=== PATIENT | female | born 1970 | race Caucasian/White ===

== ENCOUNTER 2020-10-13 14:05 | Outpatient (CLI) | payer OTHER ==
[2020-10-13 18:49] LABS: PROLACTIN 7.5 ng/mL
[2020-10-13 19:12] LABS: LUTEINIZING HORMONE 35.55 mIU/mL
[2020-10-14 08:06] LABS: ESTRADIOL <15 pg/mL; PROGESTERONE <0.5 ng/mL
== END 2020-10-13 14:06 | disposition home or self-care (01) ==
LOC: LAB.N 14:05
PROVIDERS: ATTEND Family Medicine
DX: N93.9 Abnormal uterine and vaginal bleeding, unspecified (principal)
CPT/HCPCS: 36415; 82670; 83001; 83002; 84144; 84146; 84702

== ENCOUNTER 2020-12-25 07:00 | Outpatient (CLI) | payer MEDICAID | END 2020-12-25 23:59 | disposition home or self-care (01) | LOC: LAB.N 07:00 | PROVIDERS: ATTEND Family Medicine | DX: R10.31 Right lower quadrant pain (principal) | CPT/HCPCS: 87086 ==

== ENCOUNTER 2020-12-25 13:34 | Inpatient (IN) | payer MEDICAID ==
--- NOTE | 2020-12-25 14:49 | ED Physician Documentation ---
PD HPI ABD PAIN - Stated complaint Stated Complaint: L SIDE PX/SENT BY - Chief complaint Chief Complaint: Abd Pain - History obtained from History obtained from: Patient - History of Present Illness Timing - onset: How many days ago (2-3) Timing - duration: Days (2-3) Timing - details: Abrupt onset, Still present (steadily worsening) Quality: Aching, Sharp, Pain Location: LLQ Radiation: Lower back. No: Left flank Worsened by: No: Eating Associated symptoms: Nausea, Diarrhea, Loss of appetite. No: Fever, Constipation, Dysuria, Vaginal bleeding, Vaginal dc Similar symptoms before: Has not had sx before Recently seen: Clinic (routine annual with pelvic 2-3 weeks ago that was normal.) Review of Systems Constitutional: reports: Chills, Myalgias. denies: Fever Nose: denies: Rhinorrhea / runny nose, Congestion Throat: denies: Sore throat Cardiac: denies: Chest pain / pressure Respiratory: denies: Cough GI: reports: Abdominal Pain, Nausea, Vomiting (today), Diarrhea. 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 - Present Medications Home Medications: Ambulatory Orders Medication Instructions Recorded Confirmed No Known Home Medications 12/25/20 12/25/20 - Allergies Allergies/Adverse Reactions: Allergies Allergy/AdvReac Type Severity Reaction Status Date / Time No Known Drug Allergies Allergy Verified 12/25/20 13:49 PD ED PE NORMAL - Vitals Vital signs reviewed: Yes - General General: Alert and oriented X 3, Well developed/nourished, Other (appears in considerable pain) - HEENT HEENT: Pharynx benign - Neck Neck: Supple, no meningeal sign, No adenopathy - Cardiac Cardiac: RRR, No murmur - Respiratory Respiratory: Clear bilaterally - Abdomen Abdomen: Soft, No organomegaly, Other (markedly tender LLQ and mid abdomen, with percussion and rebound tenderness. Mild distension. ) - Female Female : Deferred - Rectal Rectal: Deferred - Back Back: No CVA TTP - Derm Derm: Normal color, Warm and dry - Extremities Extremities: No edema, No calf tenderness / cord - Neuro Neuro: Alert and oriented X 3, No motor deficit, Normal speech Eye Opening: Spontaneous Motor: Obeys Commands Verbal: Oriented GCS Score: 15 Results - Vitals Vitals: Vital Signs - 24 hr 12/25/20 12/25/20 12/25/20 13:49 17:27 19:10 Temperature 36.6 C Heart Rate 75 66 61 Respiratory 16 20 16 Rate Blood Pressure 119/65 115/75 95/62 O2 Saturation 100 100 100 Oxygen O2 Source Room air - Labs Labs: Laboratory Tests 12/25/20 12/25/20 12/25/20 14:45 14:45 14:45 WBC 11.5 H RBC 4.20 Hgb 13.5 Hct 40.5 MCV 96.4 MCH 32.1 H MCHC 33.3 RDW 12.9 Plt Count 218 MPV 12.1 H Neut # (Auto) 8.5 H Lymph # (Auto) 1.9 [place] # (Auto) 0.9 Eos # (Auto) 0.0 Baso # (Auto) 0.0 Absolute Nucleated RBC 0.00 Nucleated RBC % 0.0 Sodium 139 Potassium 4.5 Chloride 102 Carbon Dioxide 26 Anion Gap 11.0 BUN 13 Creatinine 0.9 Estimated GFR (MDRD) 66 L Glucose 108 H Lactic Acid 0.7 Calcium 9.2 Total Bilirubin 1.2 H AST 11 ALT 15 Alkaline Phosphatase 64 Total Protein 8.3 H Albumin 4.2 Globulin 4.1 Albumin/Globulin Ratio 1.0 Lipase 22 Urine Color Urine Clarity Urine pH Ur Specific [place] Urine Protein Urine Glucose (UA) Urine Ketones Urine Occult Blood Urine Nitrite Urine Bilirubin Urine Urobilinogen Ur Leukocyte Esterase Urine RBC Urine WBC Ur Squamous Epith Cells Urine Bacteria Urine Mucus Ur Microscopic Review Urine Culture Comments Nasal Adenovirus (PCR) Nasal B. parapertussis DNA (PCR) Nasal Coronavir 229E PCR Nasal Coronavir HKU1 PCR Nasal Coronavir NL63 PCR Nasal Coronavir OC43 PCR Nasal Enterovir/Rhinovir PCR Nasal Influenza B PCR Nasal Influenza A PCR Nasal Parainfluen 1 PCR Nasal Parainfluen 2 PCR Nasal Parainfluen 3 PCR Nasal Parainfluen 4 PCR Nasal RSV (PCR) Nasal B.pertussis DNA PCR Nasal C.pneumoniae (PCR) Juan Daniel Human Metapneumo PCR Nasal M.pneumoniae (PCR) Nasal SARS-CoV-2 (PCR) 12/25/20 12/25/20 18:33 19:12 WBC RBC Hgb Hct MCV MCH MCHC RDW Plt Count MPV Neut # (Auto) Lymph # (Auto) [place] # (Auto) Eos # (Auto) Baso # (Auto) Absolute Nucleated RBC Nucleated RBC % Sodium Potassium Chloride Carbon Dioxide Anion Gap BUN Creatinine Estimated GFR (MDRD) Glucose Lactic Acid Calcium Total Bilirubin AST ALT Alkaline Phosphatase Total Protein Albumin Globulin Albumin/Globulin Ratio Lipase Urine Color YELLOW Urine Clarity HAZY Urine pH 5.5 Ur Specific [place] 1.010 Urine Protein 30 H Urine Glucose (UA) NEGATIVE Urine Ketones 15 H Urine Occult Blood NEGATIVE Urine Nitrite NEGATIVE Urine Bilirubin NEGATIVE Urine Urobilinogen 0.2 (NORMAL) Ur Leukocyte Esterase NEGATIVE Urine RBC 0-5 Urine WBC 0-3 Ur Squamous Epith Cells MANY Squamous H Urine Bacteria Few Urine Mucus Few Strands Ur Microscopic Review INDICATED Urine Culture Comments NOT INDICATED Nasal Adenovirus (PCR) NOT DETECTED Nasal B. parapertussis DNA (PCR) NOT DETECTED Nasal Coronavir 229E PCR NOT DETECTED Nasal Coronavir HKU1 PCR NOT DETECTED Nasal Coronavir NL63 PCR NOT DETECTED Nasal Coronavir OC43 PCR NOT DETECTED Nasal Enterovir/Rhinovir PCR NOT DETECTED Nasal Influenza B PCR NOT DETECTED Nasal Influenza A PCR NOT DETECTED Nasal Parainfluen 1 PCR NOT DETECTED Nasal Parainfluen 2 PCR NOT DETECTED Nasal Parainfluen 3 PCR NOT DETECTED Nasal Parainfluen 4 PCR NOT DETECTED Nasal RSV (PCR) NOT DETECTED Nasal B.pertussis DNA PCR NOT DETECTED Nasal C.pneumoniae (PCR) NOT DETECTED Juan Daniel Human Metapneumo PCR NOT DETECTED Nasal M.pneumoniae (PCR) NOT DETECTED Nasal SARS-CoV-2 (PCR) NOT DETECTED - Rads (name of study) abd/pelvic CT Radiology: Prelim report reviewed (Localized fluid collection with inflammation in the left lower quadrant. It is adjacent to the sigmoid colon as well as the adnexa. Consideration for diverticulitis with abscess versus tubo-ovarian. US recommended. ), See rad report Pelvic U/S Radiology: Prelim report reviewed (fluid structure near left tube possibly c/w abscess vs cyst. ), See rad report, Other (prelim from tech shows fibroid. Right ovary okay. Left ovary not well identified. Fluid collection left pelvic, but origin not defined. ) PD MEDICAL DECISION MAKING - ED course Complexity details: reviewed results (Fluid collection consistent with likely abscess adjacent to sigmoid and adnexa so origin not clear. Needs IV abx and pain control. Consult surgery and/or MANAGER AEROSPACE. ), re-evaluated patient, considered differential (Considerable tenderness in the left lower abdomen with peritoneal signs. Consider diverticulitis versus abscess versus perforation. Given her age and lack of vaginal symptoms, less likely PID. Consider also renal stone. Will get CT and labs.), d/w patient, d/w database consultant (At thisTalked with Dr. Parra on-call for surgery size of the fluid collection if it were diverticula would be treatable with IV antibiotics and not need draining or surgical intervention.) Departure - Departure Disposition: [facility] DC/Xfer Clinical Impression: Intra-abdominal abscess Abdominal pain Qualifiers: Abdominal location: left lower quadrant Qualified Code(s): R10.32 - Left lower quadrant pain Condition: Stable Record reviewed to determine appropriate education?: Yes Discharge Date/Time: 12/25/20 21:00
[2020-12-25 14:53] LABS: BASOPHILS % (AUTO) 0.3 %; EOSINOPHILS % (AUTO) 0.3 %; HCT - HEMATOCRIT 40.5 % (37.0-47.0); HGB - HEMOGLOBIN 13.5 g/dL (12.0-16.0); LYMPHOCYTES # (AUTO) 1.9 10^3/uL (1.5-3.5); LYMPHOCYTES % (AUTO) 16.7 %; MEAN CORPUSCULAR HEMOGLOBIN 32.1 pg (27.0-31.0); MEAN CORPUSCULAR HGB CONC 33.3 g/dL (32.0-36.0); MEAN CORPUSCULAR VOLUME 96.4 fL (81.0-99.0); MEAN PLATELET VOLUME 12.1 fL (7.9-10.8); MONOCYTES # (AUTO) 0.9 10^3/uL (0.0-1.0); MONOCYTES % (AUTO) 8.2 %; NEUTROPHILS # (AUTO) 8.5 10^3/uL (1.5-6.6); NEUTROPHILS % (AUTO) 74.1 %; PLT - PLATELET COUNT 218 10^3/uL (130-450); RED CELL DISTRIBUTION WIDTH 12.9 % (12.0-15.0); WHITE BLOOD COUNT 11.5 x10^3/uL (4.8-10.8)
[2020-12-25 15:06] LABS: ALBUMIN 4.2 g/dL (3.2-5.5); BILIRUBIN,TOTAL 1.2 mg/dL (0.2-1.0); CALCIUM 9.2 mg/dL (8.5-10.3); CREATININE 0.9 mg/dL (0.4-1.0); POTASSIUM 4.5 mmol/L (3.5-5.0); TOTAL PROTEIN 8.3 g/dL (6.7-8.2)
[2020-12-25] MEDS ORDERED: IOVERSOL 320 100 ML VIAL IVP ONE ×2 (15:15→16:10)
[2020-12-25] MEDS ORDERED: KETOROLAC 30 MG/ML VIAL IVP STA (15:16)
[2020-12-25] MEDS ORDERED: SODIUM CHLORIDE 0.9% 1,000 ML IV STA (15:16)
[2020-12-25] MEDS ORDERED: HYDROmorphone 1 MG/ML CARPUJECT IVP STA ×5 (15:16→20:19)
--- NOTE | 2020-12-25 16:20 | CT Report ---
PROCEDURE: Abdomen/Pelvis W INDICATIONS: LLQ Abdominal pain, diverticulitis suspected CONTRAST: IV CONTRAST: Optiray 320 ml: 100 PO CONTRAST: *NO PO CONTRAST TECHNIQUE: After the administration of IV contrast, 5 mm thick sections acquired from the diaphragms to the symp hysis. 5 mm thick coronal and sagittal reformats were acquired. For radiation dose reduction, the f ollowing was used: automated exposure control, adjustment of mA and/or kV according to patient size. COMPARISON: None. FINDINGS: Image quality: Excellent. ABDOMEN: Lung bases: Lung bases are clear. Heart size is normal. Solid organs: Liver is mildly prominent with steatosis. In size and enhancement. Gallbladder is unr emarkable Biliary system is non dilated. Pancreas enhances normally. No adrenal nodules. Kidneys demonstrate normal size and enhancement, without hydronephrosis. There is a low-density lesion with Hounsfield units measuring -60 in the left inferior pole measuring 1.2 cm. No priors are available fo r comparison. Peritoneum and bowel: Bowel loops are nonobstructive. There is a focus of heterogeneous attenuation and enhancement as well as mesenteric stranding in direct approximation to the anterior aspect of the proximal sigmoid colon on series 72 image 107. It is also immediately adjacent to the left adnexa. N odes and vessels: No retroperitoneal or mesenteric adenopathy by size criteria. Aorta and inferior vena cava are normal in size. Miscellaneous: No ventral hernias. PELVIS: Genitourinary: Bladder wall thickness is normal. There is a hyperdense mass within the uterus measu ring 5.6 cm x 2 cm x 6.0 cm. Miscellaneous: No inguinal hernias or adenopathy. Bones: No suspicious bony lesions. No vertebral body compression fractures. IMPRESSION: 1. Heterogeneous focus of attenuation and enhancement within the left lower quadrant. This region is in direct approximation to the adjacent sigmoid colon, which also demonstrates mild appearance of thi ckening as well as the left adnexa. Appearance may be related to abscess or necrotic malignancy. Singer danae, given location in direct approximation to the adnexa, tubo-ovarian abscess should be considered. Pelvic ultrasound is recommended for further evaluation. 2. Hyperdense focus within the uterus suggestive of fibroid. Attention to this region on pelvic ultra sound is recommended. Reviewed by: Maribel Martinez MD on 12/25/2020 4:18 PM PDT Approved by: Maribel Martinez MD on 12/25/2020 4:18 PM PDT Station ID: [id number]
[2020-12-25] MEDS ORDERED: cefTRIAXone 1 GM VIAL IVP STA (16:28)
[2020-12-25] MEDS ORDERED: metroNIDAZOLE 500 MG/100 ML 500 MG/100 ML BAG IV STA (16:30)
[2020-12-25 18:47] LABS: BILIRUBIN,URINE NEGATIVE (NEGATIVE); GLUCOSE, URINE (UA) NEGATIVE (NEGATIVE); KETONES,URINE (UA) 15 mg/dL (NEGATIVE); LEUKOCYTE ESTERASE, URINE NEGATIVE (NEGATIVE); NITRITE,URINE NEGATIVE (NEGATIVE); OCCULT BLOOD,URINE NEGATIVE (NEGATIVE); PH,URINE 5.5 PH (5.0-7.5); PROTEIN,URINE 30 mg/dL (NEGATIVE); UROBILINOGEN,URINE 0.2 (NORMAL) E.U./dL (NORMAL)
[2020-12-25 18:51] LABS: CLARITY,URINE HAZY (CLEAR)
[2020-12-25 18:55] LABS: BACTERIA,URINE Few /HPF (None Seen); MUCUS,URINE Few Strands; RBC,URINE 0-5 /HPF (0-5); SQUAMOUS EPITHELIAL CELL,UR MANY Squamous (<= Few); WBC,URINE 0-3 /HPF (0-5)
--- NOTE | 2020-12-25 19:40 | Ultrasound Report ---
PROCEDURE: Pelvic w/Transvag+Doppler Comp INDICATIONS: pelvic pain, R TECHNIQUE: Real-time scanning was performed of the pelvic organs, with image documentation. Additional endovagi nal scanning was necessary due to incomplete visualization of the adnexal and endometrial structures by transabdominal scanning. COMPARISON: None. FINDINGS: No pathologic free abdominal or pelvic fluid. Uterus: Uterus is normal in size at 12.0 x 5.3 x 10.2 cm. The endometrium measures 14 mm in combine d thickness. Left posterior subserosal fibroid measuring 67 mm. Ovaries: Right ovary is not well seen. There is intact flow seen within the expected region of the r ight ovary. Left ovary is not seen. Lobulated complex tubular structure within the left adnexa measur ing 44 mm x 48 mm x 43 mm. IMPRESSION: 1. Thickened endometrium. Finding may indicate hyperplasia versus carcinoma. 2. Uterine fibroid. 3. Indeterminate structure within the left adnexa, possibly representing an ovarian cyst versus dilat ed fallopian tube/tubo-ovarian abscess. Reviewed by: Lana Chanel MD on 12/25/2020 7:38 PM PDT Approved by: Lana Chanel MD on 12/25/2020 7:38 PM PDT Station ID: [id number]
[2020-12-25] MEDS ORDERED: ONDANSETRON 4 MG/2 ML VIAL IVP STA (19:51)
[2020-12-25] MEDS ORDERED: ONDANSETRON 4 MG/2 ML VIAL IVP PRN (20:31)
[2020-12-25 20:38] LABS: B. PARAPERTUSSIS- RESP PCR PAN NOT DETECTED; B. PERTUSSIS- RESP PCR PANEL NOT DETECTED; C. PNEUMONIAE- RESP PCR PANEL NOT DETECTED; CORONAVIRUS 229E-RESP PCR NOT DETECTED; CORONAVIRUS HKU1-RESP PCR NOT DETECTED; CORONAVIRUS NL63-RESP PCR NOT DETECTED; CORONAVIRUS OC43-RESP PCR NOT DETECTED; HUMAN METAPNEUMOVIRUS NOT DETECTED; INFLUENZA A- RESP PCR PANEL NOT DETECTED; INFLUENZA B - RESP PCR PANEL NOT DETECTED; M. PNEUMONIAE- RESP PCR PANEL NOT DETECTED; PARAINFLUENZA VIRUS 1 NOT DETECTED; PARAINFLUENZA VIRUS 2 NOT DETECTED; PARAINFLUENZA VIRUS 3 NOT DETECTED; PARAINFLUENZA VIRUS 4 NOT DETECTED; RHINOVIRUS/ENTEROVIRUS NOT DETECTED; RSV- RESP PCR PANEL NOT DETECTED; SARS-CoV-2 -RESP PCR PANEL NOT DETECTED
--- NOTE | 2020-12-25 20:38 | HISTORY & PHYSICAL EXAMINATION ---
Chief Complaint - Chief Complaint Chief Complaint: Abdominal pain History of Present Illness - Admitted From Admitted From:: Home - History Obtained From Records Reviewed: Yes History obtained from: Patient, ER Physician, EMR - History of Present Illness HPI Comment/Other: This is a 50-year-old female without any significant past medical history who presents today complaining of abdominal pain for the past 2 days. She states her pain became much more severe today when she woke up and she rated at about 9 out of 10. She had associated nausea but no vomiting. The pain is located left lower quadrant but she does feel it throughout her abdomen. She denies any fevers but does report chills. She reports no diarrhea or blood in her stool. She denies any dysuria, urgency, hematuria. She does report occasional vaginal spotting as she is going through menopause. She denies any vaginal discharge. She has never had a colonoscopy. She reports having a Pap smear a few weeks ago which was normal to her knowledge. In the emergency department, she was found to be afebrile and normotensive. Labs were significant for a white count of 11,500. CT of the abdomen and pelvis revealed an area of enhancement in the left lower quadrant adjacent to sigmoid colon which may potentially be diverticulitis or an abscess or necrotic malignancy. Differential also included tubo-ovarian abscess. Pelvic ultrasound reveals a thickened endometrium as well as an indeterminate structure the left adnexa which could be an ovarian cyst versus tubo-ovarian abscess. Given the above findings, medicine was consulted for admission. 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 Living arrangement: At home Living Situation: With friend(s) Social History Notes: She lives at home with her roommate. She has remote smoking history. Reports occasional alcohol use. She currently does not work. - POLST Patient has POLST: No Meds/Allgy - Home Medications Home Medications: Ambulatory Orders Medication Instructions Recorded Confirmed No Known Home Medications 12/25/20 12/25/20 - Allergies Allergies/Adverse Reactions: Allergies Allergy/AdvReac Type Severity Reaction Status Date / Time No Known Drug Allergies Allergy Verified 12/25/20 13:49 Review of Systems - Constitutional Constitutional: reports: Chills, Poor appetite. denies: Fever - Ears, Nose & Throat Ears, Nose & Throat: denies: Nasal discharge, Nasal congestion, Sore throat - Cardiovascular Cariovascular: denies: Chest pain, Lightheadedness, Exertional dyspnea, Decr. exercise tolerance - Respiratory Respiratory: denies: Cough, SOB at rest, SOB with exertion - Gastrointestinal Gastrointestinal: reports: Abdominal pain, Nausea. denies: Diarrhea, Black stools, Bloody stools, Vomiting - Genitourinary Genitourinary: denies: Dysuria, Frequency, Urgency, Hematuria - Integumentary Integumentary: denies: Rash - Neurological Neurological: denies: General weakness, Focal weakness, Dizziness, Numbness - All Other Systems All Other Systems: reports: Reviewed and negative Prior Level of Functionality: She is independent with her ADL's. Exam - Vital Signs Reviewed Vital Signs: Yes Vital Signs: Vital Signs x48h Temp Pulse Resp BP Pulse Ox 12/25/20 19:10 61 16 95/62 100 12/25/20 17:27 66 20 115/75 100 12/25/20 13:49 36.6 C 75 16 119/65 100 - Physical Exam General Appearance: positive: No acute distress, Alert Eyes Bilateral: positive: Normal inspection. negative: Conjunctivae nml ENT: positive: ENT inspection nml Neck: positive: Nml inspection Respiratory: positive: No respiratory distress. negative: Wheezes, Rales Cardiovascular: positive: Regular rate & rhythm, No murmur. negative: Tachycardia Abdomen: positive: No distention, Tenderness (Left lower quadrant.), Rebound. negative: Non-tender, Guarding, Abnml bowel sounds Skin: positive: Warm, Dry Extremities: positive: Full ROM, No pedal edema Neurologic/Psychiatric: positive: Motor nml. negative: Disoriented to person, Disoriented to place, Disoriented to time Conclusion/Plan - Problem List (1) Abdominal pain Conclusion/Plan: This may potentially be secondary to diverticulitis or a tubo-ovarian abscess. It is difficult to differentiate based off of imaging. She does not appear septic at this time. We will admit her for IV antibiotics and start her on IV Unasyn and doxycycline which would provide coverage for diverticulitis and a tubo-ovarian abscess. Pain control with Dilaudid and Toradol as needed. Full liquid diet as tolerated. General surgery and gynecology have been consulted and appreciate their input. Qualifiers: Abdominal location: left lower quadrant Qualified Code(s): R10.32 - Left lower quadrant pain (2) Abdominal abscess Conclusion/Plan: There is concern for an abdominal abscess and it is not clear if this is due to diverticulitis or potential tubo-ovarian abscess. We will admit her and start her on Unasyn and doxycycline IV as mentioned above. Appreciate general surgery and gynecology input. Follow-up blood cultures. - Lab Results Lab results reviewed: Yes Fish Bones: 12/25/20 14:45 12/25/20 14:45 - Diagnostic Imaging Results Diagnostic Imaging Results: positive: Final report reviewed Core Measures - Anticipated LOS I expect patient to be DC'd or transferred within 96 hours.: Yes - Issues Hospital Issues and Management Plan: 50-year-old female presents with abdominal pain found to have left lower quadrant abscess likely due to diverticulitis or tubo-ovarian abscess. We will admit for IV antibiotics with general surgery and gynecology consult. - DVT/VTE - Prophylaxis VTE/DVT Device ordered at admit?: Yes VTE/DVT Prophylaxis med ordered at admit?: Yes
[2020-12-25] MEDS: HYDROmorphone 1 MG/ML CARPUJECT IVP PRN (21:35)
[2020-12-25] MEDS: LACTATED RINGERS 1,000 ML IV SCH (21:39)
[2020-12-25] MEDS: DOXYCYCLINE INJ 100 MG in SODIUM CHLORIDE 0.9% MINIBAG 100 ML IV SCH (21:39)
[2020-12-25] MEDS: KETOROLAC 30 MG/ML VIAL IVP PRN (22:59)
[2020-12-26] MEDS: AMPICILLIN/SULBACTAM 3 GM in SODIUM CHLORIDE 0.9% MINIBAG 100 ML IV SCH ×2 (00:11→05:24)
[2020-12-26] MEDS: SODIUM CHLORIDE FLUSH 0.9% 10 ML SYRINGE IVP PRN ×3 (00:18→13:14)
[2020-12-26] MEDS: SODIUM CHLORIDE FLUSH 0.9% 10 ML SYRINGE IVP SCH ×4 (00:18→23:26)
[2020-12-26] MEDS: HYDROmorphone 1 MG/ML CARPUJECT IVP PRN ×5 (00:31→23:35)
[2020-12-26 05:01] LABS: BASOPHILS % (AUTO) 0.2 %; EOSINOPHILS # (AUTO) 0.1 10^3/uL (0.0-0.7); EOSINOPHILS % (AUTO) 0.7 %; HCT - HEMATOCRIT 35.6 % (37.0-47.0); HGB - HEMOGLOBIN 11.5 g/dL (12.0-16.0); LYMPHOCYTES # (AUTO) 1.5 10^3/uL (1.5-3.5); LYMPHOCYTES % (AUTO) 16.9 %; MEAN CORPUSCULAR HEMOGLOBIN 31.9 pg (27.0-31.0); MEAN CORPUSCULAR HGB CONC 32.3 g/dL (32.0-36.0); MEAN CORPUSCULAR VOLUME 98.6 fL (81.0-99.0); MEAN PLATELET VOLUME 12.4 fL (7.9-10.8); MONOCYTES # (AUTO) 0.9 10^3/uL (0.0-1.0); MONOCYTES % (AUTO) 9.5 %; NEUTROPHILS # (AUTO) 6.5 10^3/uL (1.5-6.6); NEUTROPHILS % (AUTO) 72.4 %; PLT - PLATELET COUNT 182 10^3/uL (130-450); RED BLOOD COUNT 3.61 10^6/uL (4.20-5.40)
[2020-12-26 05:09] LABS: CREATININE 0.6 mg/dL (0.4-1.0); POTASSIUM 3.4 mmol/L (3.5-5.0)
[2020-12-26] MEDS: KETOROLAC 30 MG/ML VIAL IVP PRN ×3 (05:20→22:41)
[2020-12-26] MEDS ORDERED: POTASSIUM CHLORIDE 20 MEQ TABLET PO ONE (07:14)
[2020-12-26] MEDS: DOXYCYCLINE INJ 100 MG in SODIUM CHLORIDE 0.9% MINIBAG 100 ML IV SCH (08:41)
[2020-12-26] MEDS: LACTATED RINGERS 1,000 ML IV SCH (08:43)
[2020-12-26] MEDS: ENOXAPARIN 40 MG/0.4 ML SYRINGE SUBQ SCH (08:45)
[2020-12-26] MEDS: polyethylene glycoL 3350 17 GM PACKET PO SCH (09:18)
--- NOTE | 2020-12-26 10:41 | CONSULTATION NOTE ---
Referring Provider Name of Referring Provider:: Yonathan Pierson Consult Date: 12/26/20 Chief Complaint - Chief Complaint Chief Complaint: Left lower quadrant Abdominal pain. History of Present Illness - Admitted From Admitted From:: ED - History of Present Illness HPI Comment/Other: Patient is 51yo Female admitted from ED last evening. Consulted by Dr. Pierson due to a possible tubo-ovarian abcess as source of pain. 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 Living arrangement: At home Living Situation: With friend(s) Social History Notes: She lives at home with her roommate. She has remote smoking history. Reports occasional alcohol use. She currently does not work. - POLST Patient has POLST: No Meds/Allgy - Home Medications Home Medications: Ambulatory Orders Medication Instructions Recorded Confirmed No Known Home Medications 12/25/20 12/25/20 - Allergies Allergies/Adverse Reactions: Allergies Allergy/AdvReac Type Severity Reaction Status Date / Time No Known Drug Allergies Allergy Verified 12/25/20 13:49 Review of Systems - Constitutional Constitutional: reports: Chills - Gastrointestinal Gastrointestinal: reports: Abdominal pain (Patient has had LLQ pain since yesterday. While in ED it was excrutiating.) - Other Findings Other Findings: Patient was crying out in pain caused from IV infusion when I arrived at her room to perform consult. RN and I looked at IV site and arm and there were not any signs of infiltration. No erythema, no swelling. Patient continued to complain that infusion was so cold that it was causing pain and making her hand numb. There was a K-pad around her entire arm and the forarm was warm to touch, no cold. Exam - Vital Signs Vital Signs: Vital Signs x48h Temp Pulse Resp BP Pulse Ox 12/26/20 09:00 98.6 F 80 18 107/55 L 99 12/26/20 05:00 98.0 F 98 18 94/55 L 98 - Physical Exam General Appearance: positive: Moderate distress (Patient was writhing in pain caused by IV infusion being so cold it was causing her tremendous pain. There was a k-pad around entire forearm and inspection of IV site did not display any signs of infection or infilration.) Eyes Bilateral: positive: Normal inspection Respiratory: positive: Chest non-tender, No respiratory distress Cardiovascular: positive: Regular rate & rhythm, No murmur Peripheral Pulses: positive: 2+ Abdomen: positive: Nml bowel sounds, No distention, Other (Patient was so focused on IV site that she did not seem to notice palpation of her abdomen with Stethescope. No noticeable guarding when palpated with stethescope. Good bowel sounds in all quadrants.) Skin: positive: Color nml, No rash Extremities: positive: Non-tender, No pedal edema, Other (No pedal or pretibial edema and SCD's in place.) Neurologic/Psychiatric: positive: Oriented x3 (Reviewed labs and imaging reports. Discussed findings of pelvic ultrasound with patient. Discussed her thickened endometrium and her subserosal fibroid and need for follow-up with Dr. Oro once this abcess has resolved. Discussed adding Flagyl antibiotic to the regimen.) Conclusion/Plan - Diagnosis Diagnosis: Left lower quadrant Abcess, Diverticulosis versus Tubo-ovarian Abcess - Plan Plan: Add Flagyl 500mg IV to Antibiotic regimen. Dr. Oro to follow-up with lidya rodriguez as outpatient for her thickened endometrium and her subserosal fibroid - Lab Results Lab results reviewed: Yes Fish Bones: 12/26/20 04:15 12/26/20 04:15 - Diagnostic Imaging Results Diagnostic Imaging Results: positive: Final report reviewed (Due to patient's lack of fever and normal white count, cannot definitely conclude if Tubo-Ovarian Abcess. Addition of flagyl will give more full coverage if it is tubo-ovarian abcess. Other MANAGER OF HEALTH issues will be followed by Dr. Oro as an outpatient.)
[2020-12-26 12:21] LABS: MUDS CUTOFF CONCENTRATIONS CUTOFF CONC BELOW:
[2020-12-26 12:32] LABS: AMPHETAMINE SCREEN,URINE NEGATIVE (NEGATIVE); BARBITURATE SCREEN,UR NEGATIVE (NEGATIVE); BENZODIAZEPINES SCREEN, URINE NEGATIVE (NEGATIVE); COCAINE SCREEN URINE NEGATIVE (NEGATIVE); METHADONE SCREEN, URINE NEGATIVE (NEGATIVE); METHAMPHETAMINES SCREEN, URINE NEGATIVE (NEGATIVE); OPIATE SCREEN, URINE POSITIVE (NEGATIVE); OXYCODONE SCREEN, URINE NEGATIVE (NEGATIVE); PROPOXYPHENE SCREEN, URINE NEGATIVE (NEGATIVE); THC CANNABINOID SCREEN, URINE POSITIVE (NEGATIVE); TRICYCLIC ANTIDEPRESSANT,URINE NEGATIVE (NEGATIVE)
[2020-12-26] MEDS: CIPROFLOXACIN 400 MG/200 ML 400 MG/200 ML BAG IV SCH ×2 (13:13→20:40)
--- NOTE | 2020-12-26 14:10 | PHARMACY PROGRESS NOTE ---
- Best Possible Medication History Admit Date and Time: 12/25/202030 Processed by: Nursing Medication History completed: Yes Patient Interview: Completed As the person ultimately responsible for medication therapy, providers are able to order a medication from an existing home medication list in [facility] via the "Reconcile Routine" prior to Confirmation of that medication by learning support resource room teacher. Such practice is discouraged except when the physician, in their clinical judg ment, deems that a medical need exists for a medication without regard to previous use.
[2020-12-26] MEDS: metroNIDAZOLE 500 MG/100 ML 500 MG/100 ML BAG IV SCH ×2 (14:30→21:55)
--- NOTE | 2020-12-26 14:42 | PROVIDER PROGRESS NOTE ---
Assessment/Plan - Problem List (1) Abdominal pain Qualifiers: Abdominal location: left lower quadrant Qualified Code(s): R10.32 - Left lower quadrant pain Assessment/Plan: 12/26 Patient still complain of Left lower quadrant pain when she move. gyne cology already saw pt, recommended Flagyl IV for patient, we also switch to Cipro instead of Unasy, Continue intravenous IV fluids, continue pain control (2) Abdominal abscess Conclusion/Plan: pt's WBC is slight treaded down, now it is the normal arrange. pt has no fever. She does not appear septic at this time. Per gynecology, cannot definitely conclude if Tubo-Ovarian Abcess but Addition of flagyl for more full coverage. Appreciate gynecology's consult. we will continue antibiotics, pain control, IVF, vital and lab monitor. It is difficult to differentiate based on imaging study. This might potentially be secondary to diverticulitis or tubo-ovarian abscess. we will followup with GI surgeon and gynecology's recommendation. - Current Meds Current Meds: Current Medications Generic Name Dose Route Start Last Admin Trade Name Freq PRN Reason Stop Dose Admin Enoxaparin Sodium 40 mg 12/26/20 09:00 12/26/20 08:45 Enoxaparin 40 Mg/0.4 Ml Syringe SUBQ 40 mg DAILY MICKY Administration Hydromorphone HCl 1 mg 12/25/20 20:43 12/26/20 13:13 Hydromorphone 1 Mg/Ml Carpuject IVP 1 mg Q2H PRN Administration Pain 8 to 10 Lactated Ringer's 1,000 mls @ 100 mls/hr 12/25/20 21:00 12/26/20 08:43 Lr IV 12/26/20 16:59 100 mls/hr .Q10H MICKY Administration Metronidazole 500 mg in 100 mls @ 100 mls/hr 12/26/20 14:00 12/26/20 14:30 Flagyl 500 Mg/100 Ml IV 100 mls/hr Q8H MICKY Administration Ciprofloxacin 400 mg in 200 mls @ 200 mls/hr 12/26/20 13:00 12/26/20 14:16 Cipro 400 Mg/200 Ml IV Infused BID MICKY Infusion Ketorolac Tromethamine 30 mg 12/25/20 20:45 12/26/20 05:20 Ketorolac 30 Mg/Ml Vial IVP 12/30/20 20:44 30 mg Q6H PRN Administration PAIN Polyethylene Glycol 17 gm 12/26/20 09:00 12/26/20 09:18 Polyethylene Glycol 3350 17 Gm Packet PO 17 gm DAILY MICKY Administration Sodium Chloride 10 ml 12/25/20 20:31 12/26/20 13:14 Sodium Chloride Flush 0.9% 10 Ml Syringe IVP 10 ml PRN PRN Administration NEEDED PER PROVIDER ORDERS Sodium Chloride 10 ml 12/26/20 01:00 12/26/20 09:49 Sodium Chloride Flush 0.9% 10 Ml Syringe IVP 10 ml 0100,0900,1700 MICKY Administration - Lab Result Fish Bone Diagrams: 12/26/20 04:15 12/26/20 04:15 - Additional Planning My Orders: My Active Orders 12/26/20 09:00 polyethylene glycoL 3350 [Miralax] 17 gm PO DAILY 12/26/20 13:00 Ciprofloxacin 400 mg/200 ml [Cipro 400 mg/200 ml] 400 mg in 200 ml IV BID 12/26/20 14:00 metroNIDAZOLE 500 MG/100 ML [Flagyl 500 mg/100 ml] 500 mg in 100 ml IV Q8H 12/26/20 17:00 Saccharomyces Boulardii [Florastor] 250 mg PO BIDWM Subjective - Subjective Patient Reports: Pain Objective Vital Signs: Vital Signs - 24 hr 12/25/20 12/25/20 12/25/20 17:27 19:10 21:00 Temperature 36.9 C Heart Rate 66 61 63 Heart Rate [ Brachial] Respiratory 20 16 16 Rate Blood Pressure 115/75 95/62 106/64 Blood Pressure [Left Brachial artery] Blood Pressure [Right Brachial artery] O2 Saturation 100 100 98 12/25/20 12/26/20 12/26/20 21:12 00:23 05:00 Temperature 36.4 C L 36.5 C 36.7 C Heart Rate Heart Rate [ 68 72 98 Brachial] Respiratory 20 18 18 Rate Blood Pressure Blood Pressure 115/63 94/55 L [Left Brachial artery] Blood Pressure 116/58 L [Right Brachial artery] O2 Saturation 100 97 98 12/26/20 12/26/20 09:00 13:00 Temperature 37.0 C 36.8 C Heart Rate Heart Rate [ 80 78 Brachial] Respiratory 18 17 Rate Blood Pressure Blood Pressure 107/55 L 92/65 [Left Brachial artery] Blood Pressure [Right Brachial artery] O2 Saturation 99 97 Oxygen O2 Source Room air I&O (Last 24 Hrs): Intake and Output Totals x24h 12/24/20 12/25/20 12/26/20 23:59 23:59 23:59 Intake Total 4381.242 1525 Output Total 250 Balance 2344.664 7253 General: Alert, Oriented x3, Mild distress HEENT: Atraumatic Neck: Supple Lymphatic: no adenopathy Neuro: Alert, Non Focal, Oriented Times 3 Cardiovascular: Regular rate, Normal S1, Normal S2 Respiratory: Chest non-tender, No respiratory distress Abdomen: Normal bowel sounds, Soft Extremities: Normal pulses - Results Results: Laboratory Results WBC 9.0 x10^3/uL (4.8-10.8) 12/26/20 04:15 RBC 3.61 10^6/uL (4.20-5.40) L 12/26/20 04:15 Hgb 11.5 g/dL (12.0-16.0) L 12/26/20 04:15 Hct 35.6 % (37.0-47.0) L 12/26/20 04:15 MCV 98.6 fL (81.0-99.0) 12/26/20 04:15 MCH 31.9 pg (27.0-31.0) H 12/26/20 04:15 MCHC 32.3 g/dL (32.0-36.0) 12/26/20 04:15 RDW 13.0 % (12.0-15.0) 12/26/20 04:15 Plt Count 182 10^3/uL (130-450) 12/26/20 04:15 MPV 12.4 fL (7.9-10.8) H 12/26/20 04:15 Neut # (Auto) 6.5 10^3/uL (1.5-6.6) 12/26/20 04:15 Lymph # (Auto) 1.5 10^3/uL (1.5-3.5) 12/26/20 04:15 [place] # (Auto) 0.9 10^3/uL (0.0-1.0) 12/26/20 04:15 Eos # (Auto) 0.1 10^3/uL (0.0-0.7) 12/26/20 04:15 Baso # (Auto) 0.0 10^3/uL (0.0-0.1) 12/26/20 04:15 Absolute Nucleated RBC 0.00 x10^3/uL 12/26/20 04:15 Nucleated RBC % 0.0 /100WBC 12/26/20 04:15 Sodium 136 mmol/L (135-145) 12/26/20 04:15 Potassium 3.4 mmol/L (3.5-5.0) L 12/26/20 04:15 Chloride 103 mmol/L (101-111) 12/26/20 04:15 Carbon Dioxide 27 mmol/L (21-32) 12/26/20 04:15 Anion Gap 6.0 (6-13) 12/26/20 04:15 BUN 13 mg/dL (6-20) 12/26/20 04:15 Creatinine 0.6 mg/dL (0.4-1.0) 12/26/20 04:15 Estimated GFR (MDRD) 105 (>89) 12/26/20 04:15 Glucose 136 mg/dL (70-100) H 12/26/20 04:15 Lactic Acid 0.7 mmol/L (0.5-2.2) 12/25/20 14:45 Calcium 8.0 mg/dL (8.5-10.3) L 12/26/20 04:15 Total Bilirubin 1.2 mg/dL (0.2-1.0) H 12/25/20 14:45 AST 11 IU/L (10-42) 12/25/20 14:45 ALT 15 IU/L (10-60) 12/25/20 14:45 Alkaline Phosphatase 64 IU/L (42-121) 12/25/20 14:45 Total Protein 8.3 g/dL (6.7-8.2) H 12/25/20 14:45 Albumin 4.2 g/dL (3.2-5.5) 12/25/20 14:45 Globulin 4.1 g/dL (2.1-4.2) 12/25/20 14:45 Albumin/Globulin Ratio 1.0 (1.0-2.2) 12/25/20 14:45 Lipase 22 U/L (22-51) 12/25/20 14:45 Urine Color YELLOW 12/25/20 18:33 Urine Clarity HAZY (CLEAR) 12/25/20 18:33 Urine pH 5.5 PH (5.0-7.5) 12/25/20 18:33 Ur Specific [place] 1.010 (1.002-1.030) 12/25/20 18:33 Urine Protein 30 mg/dL (NEGATIVE) H 12/25/20 18:33 Urine Glucose (UA) NEGATIVE mg/dL (NEGATIVE) 12/25/20 18:33 Urine Ketones 15 mg/dL (NEGATIVE) H 12/25/20 18:33 Urine Occult Blood NEGATIVE (NEGATIVE) 12/25/20 18:33 Urine Nitrite NEGATIVE (NEGATIVE) 12/25/20 18:33 Urine Bilirubin NEGATIVE (NEGATIVE) 12/25/20 18:33 Urine Urobilinogen 0.2 (NORMAL) E.U./dL (NORMAL) 12/25/20 18:33 Ur Leukocyte Esterase NEGATIVE (NEGATIVE) 12/25/20 18:33 Urine RBC 0-5 /HPF (0-5) 12/25/20 18:33 Urine WBC 0-3 /HPF (0-5) 12/25/20 18:33 Ur Squamous Epith Cells MANY Squamous (<= Few) H 12/25/20 18:33 Urine Bacteria Few /HPF (None Seen) 12/25/20 18:33 Urine Mucus Few Strands 12/25/20 18:33 Ur Microscopic Review INDICATED 12/25/20 18:33 Urine Culture Comments NOT INDICATED 12/25/20 18:33 Nasal Adenovirus (PCR) NOT DETECTED 12/25/20 19:12 Nasal B. parapertussis DNA (PCR) NOT DETECTED 12/25/20 19:12 Nasal Coronavir 229E PCR NOT DETECTED 12/25/20 19:12 Nasal Coronavir HKU1 PCR NOT DETECTED 12/25/20 19:12 Nasal Coronavir NL63 PCR NOT DETECTED 12/25/20 19:12 Nasal Coronavir OC43 PCR NOT DETECTED 12/25/20 19:12 Nasal Enterovir/Rhinovir PCR NOT DETECTED 12/25/20 19:12 Nasal Influenza B PCR NOT DETECTED 12/25/20 19:12 Nasal Influenza A PCR NOT DETECTED 12/25/20 19:12 Nasal Parainfluen 1 PCR NOT DETECTED 12/25/20 19:12 Nasal Parainfluen 2 PCR NOT DETECTED 12/25/20 19:12 Nasal Parainfluen 3 PCR NOT DETECTED 12/25/20 19:12 Nasal Parainfluen 4 PCR NOT DETECTED 12/25/20 19:12 Nasal RSV (PCR) NOT DETECTED 12/25/20 19:12 Nasal B.pertussis DNA PCR NOT DETECTED 12/25/20 19:12 Nasal C.pneumoniae (PCR) NOT DETECTED 12/25/20 19:12 Juan Daniel Human Metapneumo PCR NOT DETECTED 12/25/20 19:12 Nasal M.pneumoniae (PCR) NOT DETECTED 12/25/20 19:12 Nasal SARS-CoV-2 (PCR) NOT DETECTED 12/25/20 19:12 Urine Opiates Screen POSITIVE (NEGATIVE) H 12/26/20 12:01 Ur Oxycodone Screen NEGATIVE (NEGATIVE) 12/26/20 12:01 Urine Methadone Screen NEGATIVE (NEGATIVE) 12/26/20 12:01 Ur Propoxyphene Screen NEGATIVE (NEGATIVE) 12/26/20 12:01 Ur Barbiturates Screen NEGATIVE (NEGATIVE) 12/26/20 12:01 Ur Tricyclics Screen NEGATIVE (NEGATIVE) 12/26/20 12:01 Ur Phencyclidine Scrn NEGATIVE (NEGATIVE) 12/26/20 12:01 Ur Amphetamine Screen NEGATIVE (NEGATIVE) 12/26/20 12:01 U Methamphetamines Scrn NEGATIVE (NEGATIVE) 12/26/20 12:01 U Benzodiazepines Scrn NEGATIVE (NEGATIVE) 12/26/20 12:01 Urine Cocaine Screen NEGATIVE (NEGATIVE) 12/26/20 12:01 U Cannabinoids Screen POSITIVE (NEGATIVE) H 12/26/20 12:01 ABX Reporting Has patient been on IV antibiotics over the past 48 hours?: Yes Current Medications - Current Medications Current Medications: Active Medications Acetaminophen (Acetaminophen 325 Mg Tablet) 650 mg PO Q4HR PRN PRN Reason: Pain 1 to 4 Enoxaparin Sodium (Enoxaparin 40 Mg/0.4 Ml Syringe) 40 mg SUBQ DAILY MICKY Last Admin: 12/26/20 08:45 Dose: 40 mg Documented by: Hydromorphone HCl (Hydromorphone 1 Mg/Ml Carpuject) 1 mg IVP Q2H PRN PRN Reason: Pain 8 to 10 Last Admin: 12/26/20 13:13 Dose: 1 mg Documented by: Lactated Ringer's (Lr) 1,000 mls @ 100 mls/hr IV .Q10H [facility] Stop: 12/26/20 16:59 Last Admin: 12/26/20 08:43 Dose: 100 mls/hr Documented by: Metronidazole (Flagyl 500 Mg/100 Ml) 500 mg in 100 mls @ 100 mls/hr IV Q8H [facility] Last Admin: 12/26/20 14:30 Dose: 100 mls/hr Documented by: Ciprofloxacin (Cipro 400 Mg/200 Ml) 400 mg in 200 mls @ 200 mls/hr IV BID [facility] Last Infusion: 12/26/20 14:16 Dose: Infused Documented by: Ketorolac Tromethamine (Ketorolac 30 Mg/Ml Vial) 30 mg IVP Q6H PRN PRN Reason: PAIN Stop: 12/30/20 20:44 Last Admin: 12/26/20 05:20 Dose: 30 mg Documented by: Ondansetron HCl (Ondansetron Odt 4 Mg Tablet) 4 mg TL Q6HR PRN PRN Reason: Nausea / Vomiting Ondansetron HCl (Ondansetron 4 Mg/2 Ml Vial) 4 mg IVP Q6HR PRN PRN Reason: Nausea / Vomiting Polyethylene Glycol (Polyethylene Glycol 3350 17 Gm Packet) 17 gm PO DAILY [facility] Last Admin: 12/26/20 09:18 Dose: 17 gm Documented by: Saccharomyces Boulardii (Saccharomyces Boulardii 250 Mg Capsule) 250 mg PO BIDWM [facility] Sodium Chloride (Sodium Chloride Flush 0.9% 10 Ml Syringe) 10 ml IVP PRN PRN PRN Reason: NEEDED PER PROVIDER ORDERS Last Admin: 12/26/20 13:14 Dose: 10 ml Documented by: Sodium Chloride (Sodium Chloride Flush 0.9% 10 Ml Syringe) 10 ml IVP 0100,0900,1700 [facility] Last Admin: 12/26/20 09:49 Dose: 10 ml Documented by: No Known Home Medications 12/25/20
[2020-12-26] MEDS: SACCHAROMYCES BOULARDII 250 MG CAPSULE PO SCH (16:21)
[2020-12-26] MEDS: ONDANSETRON ODT 4 MG TABLET TL PRN (20:57)
[2020-12-27] MEDS: KETOROLAC 30 MG/ML VIAL IVP PRN ×4 (04:46→22:50)
[2020-12-27 04:52] LABS: BASOPHILS % (AUTO) 0.4 %; EOSINOPHILS # (AUTO) 0.1 10^3/uL (0.0-0.7); EOSINOPHILS % (AUTO) 1.5 %; HCT - HEMATOCRIT 35.3 % (37.0-47.0); HGB - HEMOGLOBIN 11.2 g/dL (12.0-16.0); LYMPHOCYTES # (AUTO) 1.8 10^3/uL (1.5-3.5); LYMPHOCYTES % (AUTO) 22.5 %; MEAN CORPUSCULAR HEMOGLOBIN 31.7 pg (27.0-31.0); MEAN CORPUSCULAR HGB CONC 31.7 g/dL (32.0-36.0); MEAN PLATELET VOLUME 11.9 fL (7.9-10.8); MONOCYTES # (AUTO) 0.7 10^3/uL (0.0-1.0); MONOCYTES % (AUTO) 9.3 %; NEUTROPHILS # (AUTO) 5.2 10^3/uL (1.5-6.6); NEUTROPHILS % (AUTO) 65.9 %; PLT - PLATELET COUNT 191 10^3/uL (130-450); RED BLOOD COUNT 3.53 10^6/uL (4.20-5.40); WHITE BLOOD COUNT 7.9 x10^3/uL (4.8-10.8)
[2020-12-27 05:00] LABS: CALCIUM 8.3 mg/dL (8.5-10.3); CREATININE 0.6 mg/dL (0.4-1.0); POTASSIUM 3.9 mmol/L (3.5-5.0)
[2020-12-27] MEDS: metroNIDAZOLE 500 MG/100 ML 500 MG/100 ML BAG IV SCH ×3 (05:34→21:43)
[2020-12-27] MEDS: HYDROmorphone 1 MG/ML CARPUJECT IVP PRN (05:40)
[2020-12-27] MEDS: ACETAMINOPHEN 325 MG TABLET PO PRN (08:30)
[2020-12-27] MEDS: SACCHAROMYCES BOULARDII 250 MG CAPSULE PO SCH ×2 (08:30→16:59)
[2020-12-27] MEDS: DOCUSATE SODIUM 250 MG CAPSULE PO SCH (08:30)
[2020-12-27] MEDS: SENNA 8.6 MG TABLET PO SCH (08:31)
[2020-12-27] MEDS: CIPROFLOXACIN 400 MG/200 ML 400 MG/200 ML BAG IV SCH ×2 (08:31→20:37)
[2020-12-27] MEDS: SODIUM CHLORIDE FLUSH 0.9% 10 ML SYRINGE IVP SCH ×3 (08:31→23:52)
[2020-12-27] MEDS: ENOXAPARIN 40 MG/0.4 ML SYRINGE SUBQ SCH (08:31)
[2020-12-27] MEDS: polyethylene glycoL 3350 17 GM PACKET PO SCH (08:44)
[2020-12-27] MEDS ORDERED: polyethylene glycoL 3350 17 GM PACKET PO SCH (09:00)
[2020-12-27] MEDS: HYDROcod/ACETAM 10 MG/325 MG TABLET PO PRN ×4 (10:57→20:38)
[2020-12-27] MEDS ORDERED: APIXABAN 2.5 MG TABLET PO SCH (11:00)
--- NOTE | 2020-12-27 14:47 | PROVIDER PROGRESS NOTE ---
Subjective - Prog Note Date Prog Note Date: 12/27/20 Prog Note Time: 14:44 - Subjective Pt reports feeling: No change Current Medications - Current Medications Current Medications: Current Medications Generic Name Dose Route Start Last Admin Trade Name Prince PRN Reason Stop Dose Admin Acetaminophen 650 mg 12/25/20 20:31 12/27/20 08:30 Acetaminophen 325 Mg Tablet PO 650 mg Q4HR PRN Administration Pain 1 to 4 Hydrocodone Bitart/Acetaminophen 1 tab 12/27/20 10:26 12/27/20 14:16 Hydrocod/Acetam 10 Mg/325 Mg Tablet PO 1 tab Q4HR PRN Administration PAIN Docusate Sodium 250 - 500 mg 12/27/20 09:00 12/27/20 08:30 Docusate Sodium 250 Mg Capsule PO 250 mg DAILY MICKY Administration Metronidazole 500 mg in 100 mls @ 100 mls/hr 12/26/20 14:00 12/27/20 13:59 Flagyl 500 Mg/100 Ml IV 100 mls/hr Q8H MICKY Administration Ciprofloxacin 400 mg in 200 mls @ 200 mls/hr 12/26/20 13:00 12/27/20 09:54 Cipro 400 Mg/200 Ml IV Infused BID MICKY Infusion Ketorolac Tromethamine 30 mg 12/25/20 20:45 12/27/20 10:54 Ketorolac 30 Mg/Ml Vial IVP 12/30/20 20:44 30 mg Q6H PRN Administration PAIN Ondansetron HCl 4 mg 12/25/20 20:31 12/26/20 20:57 Ondansetron Odt 4 Mg Tablet TL 4 mg Q6HR PRN Administration Nausea / Vomiting Polyethylene Glycol 17 gm 12/26/20 09:00 12/27/20 08:44 Polyethylene Glycol 3350 17 Gm Packet PO 17 gm DAILY MICKY Administration Saccharomyces Boulardii 250 mg 12/26/20 17:00 12/27/20 08:30 Saccharomyces Boulardii 250 Mg Capsule PO 250 mg BIDWM MICKY Administration Senna 8.6 - 17.2 mg 12/27/20 09:00 12/27/20 08:31 Senna 8.6 Mg Tablet PO 8.6 mg DAILY MICKY Administration Sodium Chloride 10 ml 12/25/20 20:31 12/26/20 13:14 Sodium Chloride Flush 0.9% 10 Ml Syringe IVP 10 ml PRN PRN Administration NEEDED PER PROVIDER ORDERS Sodium Chloride 10 ml 12/26/20 01:00 12/27/20 08:31 Sodium Chloride Flush 0.9% 10 Ml Syringe IVP 10 ml 0100,0900,1700 MICKY Administration Objective - Vital Signs/Intake & Output Reviewed Vital Signs: Yes Vital Signs: Vital Signs x48h Temp Pulse Resp BP Pulse Ox 12/27/20 13:00 36.4 C L 77 19 106/56 L 98 12/27/20 09:00 36.7 C 76 21 110/58 L 99 Intake & Output: Intake & Output 12/24/20 12/25/20 12/26/20 12/27/20 23:59 23:59 23:59 23:59 Intake Total 4224.395 3451 540 Output Total 1200 775 Balance 5461.340 2217 -235 - Objective General Appearance: positive: No acute distress Eyes Bilateral: positive: Normal inspection ENT: positive: ENT inspection nml Neck: positive: Nml inspection Respiratory: positive: Chest non-tender, No respiratory distress Cardiovascular: positive: Regular rate & rhythm, No murmur, No gallop Abdomen: positive: Nml bowel sounds, Tenderness (Abdomen is soft, obese, tender in the left lower quadrant, with scattered diffuse mild tenderness in the remainder of the abdomen). negative: Guarding, Rebound, Abnml bowel sounds Skin: positive: Color nml, No rash, Warm, Dry Extremities: positive: Full ROM, Nml appearance Neurologic/Psychiatric: positive: Oriented x3, CN's nml (2-12), Motor nml, Sensation nml - Lab Results Fish Bones: 12/27/20 04:35 12/27/20 04:35 Other Labs: Lab Results x24hrs 12/27/20 12/27/20 Range/Units 04:35 04:35 WBC 7.9 (4.8-10.8) x10^3/uL RBC 3.53 L (4.20-5.40) 10^6/uL Hgb 11.2 L (12.0-16.0) g/dL Hct 35.3 L (37.0-47.0) % MCV 100.0 H (81.0-99.0) fL MCH 31.7 H (27.0-31.0) pg MCHC 31.7 L (32.0-36.0) g/dL RDW 13.0 (12.0-15.0) % Plt Count 191 (130-450) 10^3/uL MPV 11.9 H (7.9-10.8) fL Neut # (Auto) 5.2 (1.5-6.6) 10^3/uL Lymph # (Auto) 1.8 (1.5-3.5) 10^3/uL [place] # (Auto) 0.7 (0.0-1.0) 10^3/uL Eos # (Auto) 0.1 (0.0-0.7) 10^3/uL Baso # (Auto) 0.0 (0.0-0.1) 10^3/uL Absolute Nucleated RBC 0.00 x10^3/uL Nucleated RBC % 0.0 /100WBC Sodium 138 (135-145) mmol/L Potassium 3.9 (3.5-5.0) mmol/L Chloride 103 (101-111) mmol/L Carbon Dioxide 28 (21-32) mmol/L Anion Gap 7.0 (6-13) BUN 7 (6-20) mg/dL Creatinine 0.6 (0.4-1.0) mg/dL Estimated GFR (MDRD) 105 (>89) Glucose 113 H (70-100) mg/dL Calcium 8.3 L (8.5-10.3) mg/dL - Diagnostic Imaging Diagnostic Imaging Results: positive: Final report reviewed ABX Reporting Has patient been on IV antibiotics over the past 48 hours?: Yes Assessment/Plan - Problem List (1) Abdominal pain Impression: Abdominal pain is primarily left lower quadrant. Imaging is suggestive of possibility of a intrapelvic abscess such as a tubo- ovarian abscess versus diverticulitis. Patient also admits she has not had a significant bowel movement for about 5 days now. Patient's initial white count was only slightly elevated, and has since normalized. As such, there is very little definitive evidence at this time for a clear source and underlying etiology for the abdominal pain. Patient is agreeable to advance diet and if pain can be controlled with oral medications can be discharged home with further follow-up for any questionable findings seen on intravaginal ultrasound. An attempt to transition her to home management, will Stop Dilaudid and add [place] for pain control. Would plan to transition to oral antibiotics if still in-house tomorrow and possibly discharge home as early as later today versus 1-2 more days but if pain is worsened, may need to reinvolve surgery for possible laparoscopic procedure given lack of clear etiology. Qualifiers: Abdominal location: left lower quadrant Qualified Code(s): R10.32 - Left lower quadrant pain
[2020-12-27] MEDS: SODIUM CHLORIDE FLUSH 0.9% 10 ML SYRINGE IVP PRN (20:38)
[2020-12-28] MEDS: HYDROcod/ACETAM 10 MG/325 MG TABLET PO PRN ×4 (01:04→13:52)
[2020-12-28 05:16] LABS: BASOPHILS % (AUTO) 0.3 %; EOSINOPHILS # (AUTO) 0.2 10^3/uL (0.0-0.7); EOSINOPHILS % (AUTO) 2.9 %; HCT - HEMATOCRIT 33.8 % (37.0-47.0); HGB - HEMOGLOBIN 10.8 g/dL (12.0-16.0); LYMPHOCYTES # (AUTO) 1.5 10^3/uL (1.5-3.5); LYMPHOCYTES % (AUTO) 22.5 %; MEAN CORPUSCULAR HEMOGLOBIN 31.6 pg (27.0-31.0); MEAN CORPUSCULAR VOLUME 98.8 fL (81.0-99.0); MEAN PLATELET VOLUME 12.4 fL (7.9-10.8); MONOCYTES # (AUTO) 0.6 10^3/uL (0.0-1.0); MONOCYTES % (AUTO) 9.2 %; NEUTROPHILS # (AUTO) 4.4 10^3/uL (1.5-6.6); NEUTROPHILS % (AUTO) 64.7 %; PLT - PLATELET COUNT 210 10^3/uL (130-450); RED BLOOD COUNT 3.42 10^6/uL (4.20-5.40); RED CELL DISTRIBUTION WIDTH 12.9 % (12.0-15.0); WHITE BLOOD COUNT 6.8 x10^3/uL (4.8-10.8)
[2020-12-28 05:27] LABS: ALBUMIN 3.2 g/dL (3.2-5.5); ALKALINE PHOSPHATASE 48 IU/L (42-121); ALT ALANINE AMINOTRANSFERASE < 10 IU/L (10-60); AST ASPARTATE AMINOTRANSFERASE 10 IU/L (10-42); BILIRUBIN,TOTAL 0.3 mg/dL (0.2-1.0); BUN - BLOOD UREA NITROGEN 8 mg/dL (6-20); CARBON DIOXIDE - CO2 28 mmol/L (21-32); CHLORIDE 103 mmol/L (101-111); CREATININE 0.6 mg/dL (0.4-1.0); GFR - MDRD 105 (>89); GLUCOSE 107 mg/dL (70-100); POTASSIUM 3.9 mmol/L (3.5-5.0); SODIUM 138 mmol/L (135-145); TOTAL PROTEIN 6.3 g/dL (6.7-8.2)
[2020-12-28] MEDS: KETOROLAC 30 MG/ML VIAL IVP PRN ×2 (05:43→12:24)
[2020-12-28] MEDS: SODIUM CHLORIDE FLUSH 0.9% 10 ML SYRINGE IVP PRN (05:55)
[2020-12-28] MEDS: metroNIDAZOLE 500 MG/100 ML 500 MG/100 ML BAG IV SCH (06:30)
[2020-12-28] MEDS: SACCHAROMYCES BOULARDII 250 MG CAPSULE PO SCH (08:15)
[2020-12-28] MEDS: ACETAMINOPHEN 325 MG TABLET PO PRN (08:15)
[2020-12-28] MEDS: CIPROFLOXACIN 400 MG/200 ML 400 MG/200 ML BAG IV SCH (08:15)
[2020-12-28] MEDS: polyethylene glycoL 3350 17 GM PACKET PO SCH (08:20)
[2020-12-28] MEDS: SENNA 8.6 MG TABLET PO SCH (08:20)
[2020-12-28] MEDS: DOCUSATE SODIUM 250 MG CAPSULE PO SCH (08:20)
[2020-12-28] MEDS: SODIUM CHLORIDE FLUSH 0.9% 10 ML SYRINGE IVP SCH (08:20)
[2020-12-28] MEDS ORDERED: ENOXAPARIN 40 MG/0.4 ML SYRINGE SUBQ SCH (09:00)
[2020-12-28] MEDS: ONDANSETRON ODT 4 MG TABLET TL PRN (09:26)
--- NOTE | 2020-12-28 12:23 | XRAY Report ---
PROCEDURE: Abdomen 1 View X-Ray INDICATIONS: abdominal pain, eval for ilues, sbo TECHNIQUE: 1 view of the abdomen were acquired. COMPARISON: CT abdomen and pelvis dated 12/25/2020 FINDINGS: Surgical changes and devices: None. Bowel: No pneumoperitoneum. The bowel gas pattern is normal. Soft tissues: No masses; visualized solid organ contours appear normal in size. No suspicious abdom inal calcifications. Bones: No suspicious bony abnormalities. IMPRESSION: No evidence of acute abdominal process. Reviewed by: Dandre Love MD on 12/28/2020 11:22 AM STACEY Approved by: Dandre Love MD on 12/28/2020 11:22 AM STACEY Station ID: [id number]
[2020-12-28 12:46] VITALS: BP 120/56
--- NOTE | 2020-12-28 13:15 | Discharge Plan ---
Discharge Plan Problem Reviewed?: Yes Disposition: Home, Self Care Condition: Stable Prescriptions: HYDROcod/ACET 5/325 Prepack 4 [NORCO 5/325 Prepack 4] 1 tablet PO Q6HR PRN #20 tablet PRN Reason: Severe Pain Ciprofloxacin HCl [Cipro] 500 mg PO BID #14 tablet metroNIDAZOLE [Flagyl] 500 mg PO BID #14 tablet Ketorolac [Toradol] 10 mg PO Q6H PRN #30 tablet PRN Reason: Pain Diet: Regular Activity Restrictions: No driving or operating h Shower Restrictions: No Driving Restrictions: Yes (Do not drive while taking prescription pain medications) Instruction Topics: Metronidazole injection, Ketorolac injection, Ciprofloxacin injection, Acetaminophen Hydrocodone tablets or capsules Health Concerns: You presented with abdominal pain which was evaluated with blood work and a CAT scan of the abdomen. This shows what is most likely an abscess in the pelvis, likely what is called a tubo-ovarian abscess. This can usually be treated effectively with antibiotics. If this does not work, it is possible you may require surgery. Also, on the CAT scan are some other findings that should be followed up on with orthopedic tech. Dr. Oro is recommending following up at the gynecology clinic after discharge. Please try to schedule an appointment. Please complete 7 more days of antibiotics for total of 10 days. As a side effect of these antibiotics, you may experience loose stools or diarrhea. If this persists for more than 3 days, you may try [id number] Imodium AD. In addition, it would be a good idea to try taking some [id number] probiotics such as activity a yogurt or other probiotics you can find at the local pharmacy. No Smoking: If you smoke, Please STOP! Call for help.
--- NOTE | 2020-12-28 18:20 | DISCHARGE SUMMARY ---
"Discharge Summary Admit Date: 12/28/20 Discharge Date: 12/28/20 Discharging Provider: Romeo Mayes MD Condition at Discharge: Stable Discharge Disposition: 01 Home, Self Care - DIAGNOSES Admission Diagnoses: Abdominal Pain Abdominal Abscess Discharge Diagnoses with Status of Each Condition: Abdominal painimproved Tubo-ovarian abscessimproved - HPI History of Present Illness: This is a 50-year-old female without any significant past medical history who presents today complaining of abdominal pain for the past 2 days. She states her pain became much more severe today when she woke up and she rated at about 9 out of 10. She had associated nausea but no vomiting. The pain is located left lower quadrant but she does feel it throughout her abdomen. She denies any fevers but does report chills. She reports no diarrhea or blood in her stool. She denies any dysuria, urgency, hematuria. She does report occasional vaginal spotting as she is going through menopause. She denies any vaginal discharge. She has never had a colonoscopy. She reports having a Pap smear a few weeks ago which was normal to her knowledge. In the emergency department, she was found to be afebrile and normotensive. Labs were significant for a white count of 11,500. CT of the abdomen and pelvis revealed an area of enhancement in the left lower quadrant adjacent to sigmoid colon which may potentially be diverticulitis or an abscess or necrotic m alignancy. Differential also included tubo-ovarian abscess. Pelvic ultrasound reveals a thickened endometrium as well as an indeterminate structure the left adnexa which could be an ovarian cyst versus tubo-ovarian abscess. Given the above findings, medicine was consulted for admission. - CONSULTS | PROCEDURES Consultations: Gynecology, Dr. Brynn Barrera Procedures: None - HOSPITAL COURSE Hospital Course: On admission, underlying etiology of the abdominal pain in the left lower quadrant was somewhat uncertain. Working diagnosis with diverticulitis versus tubo-ovarian abscess. Initial plan was starting IV antibiotics with Unasyn and doxycycline, along with as needed pain control using Dilaudid and Toradol. She was started on a full liquid diet and general surgery and gynecology had both been consulted. Dr Brynn Barrera Was kind enough to see the patient and provide her expertise in medical opinion. Her conclusion was this was most likely an ovarian abscess, and she recommended some antibiotic changes including the addition of Flagyl. Antibiotics were then changed to Cipro and Flagyl IV. General surgery also felt that there was nothing surgical and although they were kind enough to offer their assistance, it was mutually agreed that no surgical intervention was necessary during this hospital stay. CT scan and transvaginal ultrasound were both performed as mentioned in the HPI. Of note, transvaginal ultrasound was incidentally also remarkable for endometrial thickening and gynecology recommended outpatient follow-up for this. IV antibiotics were continued, and the pain gradually did improve. She continued to have pain remarkable enough however that it did require narcotic pain medication use. On exam it was felt that this pain was likely exacerbated by constipation and the patient was given bowel regimen for this. On the day of discharge, patient was able to have a few bowel movements including 2 loose bowel movements. An x-ray was done which was benign with the exception of stool. The leukocytosis had resolved, patient was afebrile, she was able to tolerate a regular diet, so it was concluded that the patient to be medically stable for discharge on oral antibiotics with Cipro and Flagyl for another 7 days to complete a 10-day course of treatment. She was also advised to follow- up with gynecology and given information for follow-up. - ALLERGIES Allergies/Adverse Reactions: Allergies Allergy/AdvReac Type Severity Reaction Status Date / Time No Known Drug Allergies Allergy Verified 12/25/20 13:49 - MEDICATIONS Home Medications: Ambulatory Orders Medication Instructions Recorded Confirmed Ciprofloxacin HCl [Cipro] 500 mg PO BID #14 tablet 12/28/20 HYDROcod/ACET 5/325 Prepack 4 1 tablet PO Q6HR PRN #20 tablet 12/28/20 [NORCO 5/325 Prepack 4] Ketorolac [Toradol] 10 mg PO Q6H PRN #30 tablet 12/28/20 metroNIDAZOLE [Flagyl] 500 mg PO BID #14 tablet 12/28/20 - PHYSICAL EXAM AT DISCHARGE General Appearance: positive: No acute distress Eyes Bilateral: positive: Normal inspection ENT: positive: ENT inspection nml Neck: positive: Nml inspection Respiratory: positive: Chest non-tender Cardiovascular: positive: Regular rate & rhythm Abdomen: positive: Tenderness (Tender left lower quadrant, but much less than previous days exams) Skin: positive: Color nml Extremities: positive: Non-tender, Full ROM, Nml appearance Neurologic/Psychiatric: positive: Oriented x3, CN's nml (2-12), Motor nml - LABS Result Diagrams: 12/28/20 04:26 12/28/20 04:26 - DIAGNOSTIC IMAGING Diagnostic Imaging Results: Final report reviewed - FOLLOW UP Follow Up: Follow up with [facility] and PCP. - TIME SPENT Time Spent in Discharge (Minutes): 38"
== END 2020-12-28 14:00 | disposition home or self-care (01) | DRG 759 ==
LOC: ED 13:34 → MS3 20:31
PROVIDERS: ADMIT Internal Medicine; ATTEND Family Medicine Sports Medicine
DX: N70.93 Salpingitis and oophoritis, unspecified (principal); R93.89 Abnormal findings on diagnostic imaging of other specified body structures; K59.00 Constipation, unspecified; Z20.822 Contact with and (suspected) exposure to COVID-19; Z87.891 Personal history of nicotine dependence; R10.31 Right lower quadrant pain
CPT/HCPCS: 0202U; 36415; 74018; 74177; 76830; 76856; 80048; 80053; 80306; 81001; 83605; 83690; 85025; 87086; 93975; 96365; 96375; 96376; 99284; 99285; A9270; J1170; J1650; J7120; Q0162; Q9967; 81003

== ENCOUNTER 2021-04-17 12:43 | Outpatient (CLI) | payer MEDICAID | END 2021-04-17 12:44 | disposition home or self-care (01) | LOC: COV 12:43 | PROVIDERS: ATTEND Family Medicine | DX: Z20.822 Contact with and (suspected) exposure to COVID-19 (principal) ==

== ENCOUNTER 2022-04-29 08:00 | Outpatient (CLI) | payer OTHER, MEDICAID ==
--- NOTE | 2022-04-30 08:55 | XRAY Report ---
PROCEDURE: Shoulder 3 View RT INDICATIONS: RIGHT SHOULDER PAIN TECHNIQUE: 4 views of the shoulder were acquired. COMPARISON: None. FINDINGS: Bones: No fractures or dislocations. No suspicious bony lesions. Visualized ribs appear intact. Soft tissues: No suspicious soft tissue calcifications. IMPRESSION: Normal right shoulder Reviewed by: Siddharth Sosa on 04/30/2022 8:54 AM PDT Approved by: Siddharth Sosa on 04/30/2022 8:54 AM PDT Station ID: [id number]
== END 2022-04-29 23:59 | disposition home or self-care (01) ==
LOC: DI.WOS 08:00
PROVIDERS: ATTEND Orthopaedic Surgery
DX: M25.511 Pain in right shoulder (principal)

== ENCOUNTER 2023-07-27 18:43 | Emergency (ER) | payer MEDICAID ==
[2023-07-27 19:14] VITALS: BP 129/72; O2SAT 98
[2023-07-27] MEDS ORDERED: HYDROmorphone 1 MG/ML CARPUJECT IM STA (19:29)
[2023-07-27] MEDS ORDERED: DEXAMETHASONE 10 MG/ML VIAL PO STA (19:29)
[2023-07-27] MEDS ORDERED: KETOROLAC 60 MG/2 ML VIAL IM STA (19:29)
--- NOTE | 2023-07-27 19:58 | ED Physician Documentation ---
PD HPI BACK PAIN - Stated complaint Stated Complaint: BACK PAIN - Chief complaint Chief Complaint: Back Pain - History obtained from History obtained from: Patient - History of Present Illness Timing - onset: How many days ago (3) Timing - duration: Days (3) Timing - details: Gradual onset, Still present Pain level max: 9 Pain level now: 9 Location: Lower, Left Quality: Pain, Spasm, Sharp, Similar to prior episodes Associated symptoms: No: Fever, Weakness, Numbness, Incontinent of urine, Unable to urinate, Hematuria, Incontinent of stool Improves with: Rest Worsened by: Movement, Lifting, Twisting Contributing factors: No: Anticoagulated, Cancer, IVDA Similar symptoms before: Diagnosis (Sciatica) - Additional information Additional information: Patient is a 52-year-old female who presents to the emergency department with back pain. She states this is a chronic ongoing issue. Has had sciatica several times in the past. She states that today it is radiating down the left leg. Worse with sitting. Better with standing. No loss of bowel or bladder control. No numbness or tingling. No trauma. 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 No IV drug use. No fevers. No chills. No cough. No congestion. No abdominal pain, nausea, vomiting. 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 - Present Medications Home Medications: Ambulatory Orders Medication Instructions Recorded Confirmed Meloxicam [Mobic] 7.5 mg PO BID PRN #20 tablet 07/27/23 methylPREDNISolone [Medrol] 4 mg PO DAILY #1 tab 07/27/23 oxyCODONE [Roxicodone] 5 - 10 mg PO Q6H PRN #14 tablet 07/27/23 MDD 6 - Allergies Allergies/Adverse Reactions: Allergies Allergy/AdvReac Type Severity Reaction Status Date / Time No Known Drug Allergies Allergy Verified 07/27/23 19:05 - Social History Does the pt smoke?: No Smoking Status: Light tobacco smoker - POLST Patient has POLST: No PD ED PE NORMAL - Vitals Vital signs reviewed: Yes - General General: Alert and oriented X 3, No acute distress, Well developed/nourished - HEENT HEENT: PERRL, Moist mucous membranes - Neck Neck: Supple, no meningeal sign - Cardiac Cardiac: RRR, Strong equal pulses - Respiratory Respiratory: No respiratory distress, Clear bilaterally - Abdomen Abdomen: Soft, Non tender, Non distended - Back Back: No spinal TTP, Other (No midline tenderness to palpation or percussion. No step-off or deformity.) - Derm Derm: Warm and dry - Extremities Extremities: No edema, No calf tenderness / cord - Neuro Neuro: Alert and oriented X 3, No motor deficit, No sensory deficit, Other (Normal bilateral lower extremity patellar and ankle jerk reflexes. Normal great toe extension bilaterally. no saddle anesthesia) - Psych Psych: Normal mood, Normal affect Results - Vitals Vitals: Vital Signs - 24 hr 07/27/23 07/27/23 19:01 19:05 Temperature 36.6 C 36.6 C Heart Rate 98 98 Respiratory 17 17 Rate Blood Pressure 129/72 129/72 O2 Saturation 98 98 Oxygen O2 Source Room air PD Medical Decision Making - ED course Complexity details: reviewed results, re-evaluated patient, considered diffe rential (No cauda equina, no spinal epidural abscess, no fracture, no aortic dissection or evidence of aneursym rupture), d/w patient ED course: Patient with what appears to be sciatica of the left side. Was given Toradol and Dilaudid IM. Dexamethasone p.o. Pain improved, she is able to ambulate in the emergency department. No indication for emergent imaging. We will place on pain medication and steroids for home. Will have her follow-up with her PCP for further care. No evidence of cauda equina, epidural abscess. No focal neurological deficits. No falls. No trauma. No evidence of fracture. Patient counseled regarding signs and symptoms for which I believe and urgent re-evaluation would be necessary. Patient with good understanding of and agreement to plan and is comfortable going home at this time This document was made in part using voice recognition software. While efforts are made to proofread this document, sound alike and grammatical errors may occur. Departure - Departure Disposition: Home, Self Care Clinical Impression: Sciatica Qualifiers: Laterality: left Qualified Code(s): M54.32 - Sciatica, left side Condition: Good Instructions: ED Sciatica Follow-Up: your,doctor in 1 week [Other] Prescriptions: methylPREDNISolone [Medrol] 4 mg PO DAILY #1 tab Meloxicam [Mobic] 7.5 mg PO BID PRN #20 tablet PRN Reason: Pain oxyCODONE [Roxicodone] 5 - 10 mg PO Q6H PRN #14 tablet MDD 6 PRN Reason: pain Comments: Your prescriptions were sent to [facility] in [place]. The you appear to have sciatica tonight, this should improve with the pain medication and steroids. Please follow-up with your doctor for further care. Please return if you worsen. I am prescribing a short course of narcotic pain medication for you. These are potentially dangerous and addictive medications that should be used carefully. These medications may constipate you. Take an ngoh-pxg-faaagoo stool softener (docusate) twice daily with plenty of water while taking these medications. If you go 24 hours without a bowel movement, take yvcu-vcn-oigdqis miralax, per package instructions. Do not drink or drive while taking these medications. If you received narcotic or sedating medications while in the emergency department, do not drive for 24 hours. Store this medication in a safe, secure place and out of reach of children. It is a violation of federal law to give or sell this medication to another person or to use in a manner other than prescribed. The ED will not refill narcotic prescriptions, including prescriptions lost or stolen. To dispose of unwanted medications: 1. [facility] at [address] in [place] has a medication drop box. They accept prescription medications (in pill form) Tuesday through Tuesday 9:00 a.m. to 5:00 p.m. 2. The [facility] [employer] accepts prescription medications (in pill form only) for disposal year round. Call for more information. 3. Contact the [facility] for the next [facility] sponsored prescription drug collection event. , [phone], or [phone]; Discharge Date/Time: 07/27/23 20:45
[2023-07-27] MEDS ORDERED: oxyCODONE/ACET 5/325 Prepack 4 PO STA (20:30)
== END 2023-07-27 20:45 | disposition home or self-care (01) ==
LOC: ED 18:43
DX: M54.42 Lumbago with sciatica, left side (principal); F17.200 Nicotine dependence, unspecified, uncomplicated
CPT/HCPCS: 96372; 99283; J1170

== ENCOUNTER 2023-11-06 18:56 | Emergency (ER) | payer MEDICAID ==
[2023-11-06 19:18] VITALS: BP 135/65; O2SAT 100
[2023-11-06] MEDS: PROPARACAINE 0.5% OPHTH DROPS 15 ML EACHEYE STA (19:23)
--- NOTE | 2023-11-06 19:23 | ED Physician Documentation ---
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 No vision deficit. 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 - Present Medications Home Medications: Ambulatory Orders Medication Instructions Recorded Confirmed Meloxicam [Mobic] 7.5 mg PO BID PRN #20 tablet 07/27/23 methylPREDNISolone [Medrol] 4 mg PO DAILY #1 tab 07/27/23 oxyCODONE [Roxicodone] 5 - 10 mg PO Q6H PRN #14 tablet 07/27/23 MDD 6 Erythromycin Base [Erythromycin 1 appful OP 5XD 7 Days #1 gm 11/06/23 Ophthalmic Ointment] - Allergies Allergies/Adverse Reactions: Allergies Allergy/AdvReac Type Severity Reaction Status Date / Time No Known Drug Allergies Allergy Verified 11/06/23 19:02 - Social History Does the pt smoke?: No Smoking Status: Never smoker Does the pt drink ETOH?: Yes Does the pt have substance abuse?: No - Immunizations Immunizations are current?: Yes - POLST Patient has POLST: No PD ED PE NORMAL - Vitals Vital signs reviewed: Yes - General General: Alert and oriented X 3, No acute distress - HEENT HEENT: PERRL, EOMI, Other (The left conjunctiva is very injected. There is no contact foreign body noted on close examination of the cornea, or the sclera/conjunctiva or in either fornix. There is no fluorescein uptake.) - Neck Neck: Supple, no meningeal sign - Neuro Neuro: Alert and oriented X 3 Results - Vitals Vitals: Vital Signs - 24 hr 11/06/23 19:03 Temperature 36.5 C Heart Rate 90 Respiratory 16 Rate Blood Pressure 135/65 H O2 Saturation 100 Oxygen O2 Source Room air Departure - Departure Disposition: 01 Home, Self Care Clinical Impression: Conjunctivitis Qualifiers: Conjunctivitis type: acute Acute conjunctivitis type: unspecified Laterality: left Qualified Code(s): H10.32 - Unspecified acute conjunctivitis, left eye Condition: Good Record reviewed to determine appropriate education?: Yes Instructions: ED Conjunctivitis Nonspecific Prescriptions: Erythromycin Base [Erythromycin Ophthalmic Ointment] 1 appful OP 5XD 7 Days #1 gm Comments: As discussed, at this point it looks like the contact is out but your sclera (the white of the eye is very injected and inflamed from attempts to get the contact out do not wear your contacts until completely better. You should improve over the next couple of days though. If not better in that timeframe, follow-up with the employment educational coord listed on this form. Return for new or worsening symptoms. Forms: PCP List
[2023-11-06] MEDS: ERYTHROMYCIN OPHTH OINT 1 GM TUBE LEFTEYE STA (19:35)
== END 2023-11-06 19:38 | disposition home or self-care (01) ==
LOC: ED 18:56
DX: H10.32 Unspecified acute conjunctivitis, left eye (principal); Z79.899 Other long term (current) drug therapy
CPT/HCPCS: 99283; J3490

== ENCOUNTER 2023-12-06 04:10 | Outpatient (CLI) | payer OTHER, MEDICAID | END 2023-12-06 23:59 | disposition critical access hospital (66) | LOC: EMS 04:10 | DX: R07.81 Pleurodynia (principal); M25.532 Pain in left wrist | CPT/HCPCS: A0425; A0429; A0999 ==

== ENCOUNTER 2023-12-06 04:35 | Inpatient (IN) | payer OTHER, MEDICAID ==
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
[2023-12-06] MEDS: HYDROmorphone 1 MG/ML CARPUJECT IVP STA ×4 (04:57→16:55)
[2023-12-06 06:36] LABS: ALBUMIN/GLOBULIN RATIO 1.7 (1.0-2.2); BILIRUBIN,TOTAL 0.6 mg/dL (0.2-1.0); CALCIUM 8.9 mg/dL (8.5-10.3); CREATININE 0.7 mg/dL (0.6-1.3); POTASSIUM 4.2 mmol/L (3.5-4.5); TOTAL PROTEIN 6.3 g/dL (6.4-8.9)
[2023-12-06] MEDS ORDERED: iohexoL-300 100 ML VIAL ONE (06:37)
[2023-12-06 08:14] LABS: BASOPHILS % (AUTO) 0.2 %; EOSINOPHILS % (AUTO) 0.1 %; HCT - HEMATOCRIT 37.8 % (37.0-47.0); HGB - HEMOGLOBIN 12.1 g/dL (12.0-16.0); LYMPHOCYTES # (AUTO) 1.9 10^3/uL (1.5-3.5); LYMPHOCYTES % (AUTO) 20.1 %; MEAN CORPUSCULAR HEMOGLOBIN 30.5 pg (27.0-31.0); MEAN CORPUSCULAR VOLUME 95.2 fL (81.0-99.0); MEAN PLATELET VOLUME 12.7 fL (7.9-10.8); MONOCYTES # (AUTO) 0.8 10^3/uL (0.0-1.0); MONOCYTES % (AUTO) 8.4 %; NEUTROPHILS # (AUTO) 6.6 10^3/uL (1.5-6.6); PLT - PLATELET COUNT 169 10^3/uL (130-450); RED BLOOD COUNT 3.97 10^6/uL (4.20-5.40); RED CELL DISTRIBUTION WIDTH 13.2 % (12.0-15.0); WHITE BLOOD COUNT 9.3 x10^3/uL (4.8-10.8)
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
[2023-12-06] MEDS: KETOROLAC 15 MG/ML VIAL IVP STA ×2 (08:45→16:54)
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
[2023-12-06] MEDS: methocarbamoL 500 MG TABLET PO STA ×3 (10:33→20:11)
[2023-12-06] MEDS: LIDOCAINE PATCH 5% TOP STA ×2 (10:34→13:28)
[2023-12-06] MEDS: SODIUM CHLORIDE 0.9% 1,000 ML IV STA (10:57)
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
[2023-12-06] MEDS: iohexoL-300 100 ML VIAL IVP ONE (14:00)
[2023-12-06] MEDS ORDERED: HYDROmorphone 1 MG/ML CARPUJECT IVP PRN (16:17)
[2023-12-06] MEDS: LACTATED RINGERS 1,000 ML IV STA (16:57)
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
[2023-12-06] MEDS: HYDROmorphone PCA 20MG/100ML IV PRN (20:05)
[2023-12-06] MEDS: SODIUM CHLORIDE 0.9% 1,000 ML IV SCH (20:11)
[2023-12-07] MEDS ORDERED: HYDROmorphone PCA 20MG/100ML IV PRN ×3 (01:04→07:38)
[2023-12-07] MEDS: SODIUM CHLORIDE FLUSH 0.9% 10 ML SYRINGE IVP SCH (02:20)
[2023-12-07] MEDS: ONDANSETRON 4 MG/2 ML VIAL IVP PRN (07:02)
[2023-12-07 09:06] LABS: BASOPHILS % (AUTO) 0.2 %; EOSINOPHILS # (AUTO) 0.1 10^3/uL (0.0-0.7); EOSINOPHILS % (AUTO) 1.1 %; HCT - HEMATOCRIT 38.3 % (37.0-47.0); LYMPHOCYTES # (AUTO) 1.3 10^3/uL (1.5-3.5); LYMPHOCYTES % (AUTO) 15.3 %; MEAN CORPUSCULAR HEMOGLOBIN 30.5 pg (27.0-31.0); MEAN CORPUSCULAR HGB CONC 31.3 g/dL (32.0-36.0); MEAN CORPUSCULAR VOLUME 97.2 fL (81.0-99.0); MEAN PLATELET VOLUME 12.8 fL (7.9-10.8); MONOCYTES # (AUTO) 0.8 10^3/uL (0.0-1.0); MONOCYTES % (AUTO) 9.1 %; NEUTROPHILS # (AUTO) 6.1 10^3/uL (1.5-6.6); NEUTROPHILS % (AUTO) 73.9 %; PLT - PLATELET COUNT 149 10^3/uL (130-450); RED BLOOD COUNT 3.94 10^6/uL (4.20-5.40); RED CELL DISTRIBUTION WIDTH 13.4 % (12.0-15.0); WHITE BLOOD COUNT 8.3 x10^3/uL (4.8-10.8)
--- NOTE | 2023-12-07 09:09 | XRAY Report ---
PROCEDURE: Chest 1V INDICATIONS: Increased pain monitor TECHNIQUE: One view of the chest was acquired. COMPARISON: CT chest 12/06/2023, chest x-ray 12/06/2023 FINDINGS: Surgical changes and devices: None. Lungs and pleura: Interval blunting of the right costophrenic angle with basilar opacity. Mediastinum: Mediastinal contours appear normal. Heart size is mildly prominent. Bones and chest wall: No suspicious bony lesions. Overlying soft tissues appear unremarkable. IMPRESSION: Interval right basilar opacity suggestive mild effusion. Evolving atelectasis/pneumonia cannot be exc luded. Reviewed by: Maribel Martinez MD on 12/07/2023 9:08 AM PDT Approved by: Maribel Martinez MD on 12/07/2023 9:08 AM PDT Station ID: [id number]
[2023-12-07 09:20] LABS: ALBUMIN/GLOBULIN RATIO 1.5 (1.0-2.2); BILIRUBIN,TOTAL 0.7 mg/dL (0.2-1.0); CALCIUM 9.1 mg/dL (8.5-10.3); CREATININE 0.7 mg/dL (0.6-1.3); POTASSIUM 3.9 mmol/L (3.5-4.5); TOTAL PROTEIN 6.7 g/dL (6.4-8.9)
--- NOTE | 2023-12-07 09:29 | PROVIDER PROGRESS NOTE ---
Subjective - General Admit Date: 12/06/23 - Review of Systems General: positive: Other (Chest/rib pain.) HEENT: positive: No symptoms Pulmonary: positive: Pleuritic chest pain. negative: Hemoptysis Cardiovascular: positive: No symptoms Gastrointestinal: positive: No symptoms Genitourinary: positive: No symptoms Musculoskeletal: positive: Other (Wrist pain) Skin: positive: No symptoms Psychiatric: positive: No symptoms Objective - Patient Data Reviewed Vital Signs: Yes Vital Signs: Vital Signs x48h Temp Pulse Resp BP Pulse Ox O2 Flow Rate 12/07/23 08:00 36.4 C L 60 16 101/64 94 2 12/07/23 07:00 16 12/07/23 06:00 16 12/07/23 05:00 16 12/07/23 04:00 14 12/07/23 03:00 14 12/07/23 02:00 20 Weight: Weight 12/05/23 12/06/23 12/07/23 23:59 23:59 23:59 Weight (kg) 100 kg Intake & Output: Intake and Output Totals x24h 12/05/23 12/06/23 12/07/23 23:59 23:59 23:59 Intake Total 767 1319.717 Balance 7 1319.717 - Lab Results Lab Results: 12/07/23 08:56 12/07/23 08:56 Other Lab Results: Lab Results x24hrs 12/07/23 12/07/23 Range/Units 08:56 08:56 WBC 8.3 (4.8-10.8) x10^3/uL RBC 3.94 L (4.20-5.40) 10^6/uL Hgb 12.0 (12.0-16.0) g/dL Hct 38.3 (37.0-47.0) % MCV 97.2 (81.0-99.0) fL MCH 30.5 (27.0-31.0) pg MCHC 31.3 L (32.0-36.0) g/dL RDW 13.4 (12.0-15.0) % Plt Count 149 (130-450) 10^3/uL MPV 12.8 H (7.9-10.8) fL Neut # (Auto) 6.1 (1.5-6.6) 10^3/uL Lymph # (Auto) 1.3 L (1.5-3.5) 10^3/uL [place] # (Auto) 0.8 (0.0-1.0) 10^3/uL Eos # (Auto) 0.1 (0.0-0.7) 10^3/uL Baso # (Auto) 0.0 (0.0-0.1) 10^3/uL Absolute Nucleated RBC 0.00 x10^3/uL Nucleated RBC % 0.0 /100WBC Sodium 139 (135-145) mmol/L Potassium 3.9 (3.5-4.5) mmol/L Chloride 106 (101-111) mmol/L Carbon Dioxide 26 (21-32) mmol/L Anion Gap 7.0 (6-13) BUN 18 (6-20) mg/dL Creatinine 0.7 (0.6-1.3) mg/dL Estimated GFR (MDRD) 87 L (>89) Glucose 133 H (74-104) mg/dL Calcium 9.1 (8.5-10.3) mg/dL Total Bilirubin 0.7 (0.2-1.0) mg/dL AST 15 (10-42) IU/L ALT 16 (10-60) IU/L Alkaline Phosphatase 61 (42-121) IU/L Total Protein 6.7 (6.4-8.9) g/dL Albumin 4.0 (3.2-5.5) g/dL Globulin 2.7 (2.1-4.2) g/dL Albumin/Globulin Ratio 1.5 (1.0-2.2) - Current Medications Current Medications: Current Medications Generic Name Dose Route Start Last Admin Trade Name Freq PRN Reason Stop Dose Admin Sodium Chloride 1,000 mls @ 83 mls/hr 12/06/23 19:00 12/07/23 07:54 Normal Saline 0.9% IV 83 mls/hr .Q12H3M MICKY Administration Ondansetron HCl 4 mg 12/06/23 18:32 12/07/23 07:02 Ondansetron 4 Mg/2 Ml Vial IVP 4 mg Q6HR PRN Administration Nausea / Vomiting Sodium Chloride 10 ml 12/07/23 01:00 12/07/23 07:54 Sodium Chloride Flush 0.9% 10 Ml Syringe IVP Not Given 0100,0900,1700 MICKY - Physical Exam General Appearance: positive: Mild distress Eyes Bilateral: positive: No lid inflammation, Conjunctivae nml, No scleral icterus ENT: positive: Dry mucous membranes Neck: positive: Trachea midline Respiratory: positive: Rhonchi, Other (Decreased air motion.) Cardiovascular: positive: Regular rate & rhythm, No murmur Abdomen: positive: Non-tender, Nml bowel sounds Skin: positive: Color nml, Warm, Dry Extremities: positive: Other (Wrist in splint.) Neurologic/Psychiatric: positive: Oriented x3, Motor nml, Sensation nml, Mood/affect nml ABX Reporting Has patient been on IV antibiotics over the past 48 hours?: No Impression/Plan - Problem List Problem List: Hospital day 2 Some confusion regarding pain medication last night as I was contacted that pain medication was not adequate but 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 This was not made clear and baseline amount was increased. Thoracic epidural request and appreciate Lenny Sal. Will have orthopedic consultation for wrist at their convenience. Start low dose Ativan to see if it helps with spasms. Add Tylenol to pain regimen.
[2023-12-07] MEDS: ENOXAPARIN 40 MG/0.4 ML SYRINGE SUBQ SCH (10:15)
[2023-12-07] MEDS ORDERED: ROPIVACAINE 0.2% 200 MG/100 ML BAG EP ONE (10:17)
[2023-12-07] MEDS ORDERED: LIDOCAINE 2%-EPI 1:100000 20 ML MDV ONE (10:17)
[2023-12-07] MEDS: HYDROmorphone PCA 20MG/100ML IV PRN (10:17)
[2023-12-07] MEDS: polyethylene glycoL 3350 17 GM PACKET PO SCH (11:10)
[2023-12-07] MEDS ORDERED: ONDANSETRON 4 MG/2 ML VIAL IVP PRN (11:51)
[2023-12-07] MEDS ORDERED: NALBUPHINE 10 MG/ML AMP IVP PRN (11:51)
--- NOTE | 2023-12-07 11:57 | ANESTHESIA PROCEDURE NOTE ---
Anesthesia Epidural Template - Patient Report Patient Reports: positive: Pain controlled - Exam Epidural Medication Information: Ropivicaine 0.2% 5cc starting bolus followed by 6cc/hr continuous infusion with 4cc/20 min PCEA prn - Plan Plan: positive: Continue current management
--- NOTE | 2023-12-07 12:03 | PHARMACY PROGRESS NOTE ---
- Best Possible Medication History Admit Date and Time: 12/06/23 1833 Processed by: Pharmacy Medications reviewed in ED?: No Medication History completed: Yes Patient Interview: Completed Secondary Source(s): Insurance records As the person ultimately responsible for medication therapy, providers are able to order a medication from an existing home medication list in [facility] via the "Reconcile Routine" prior to Confirmation of that medication by production support engineer. Such practice is discouraged except when the physician, in their clinical judgment, deems that a medical need exists for a medication without regard to previous use.
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
[2023-12-07] MEDS ORDERED: ROPIVACAINE 0.2% PF 10 ML VIAL ONE (14:18)
[2023-12-07] MEDS ORDERED: fentaNYL 100 MCG/2 ML VIAL ONE (14:24)
--- NOTE | 2023-12-07 14:53 | CONSULTATION NOTE ---
Consultation Report: Called for patient c/o pain. New spasms causing 7/10 rib pain, R wrist also at 8/10 at rest. Unable to appreciate any sensory level with etoh wipe but patient states pain did improve after placement. Epidural dosed with 5cc 0.2% ropi. Easily flushes after negative aspiration. Patient states midline feeling of pressure and fluid movement with injection. Patient also dosed with Fentanyl 100mcg IV with flush. States immediate relief of wrist pain, ribs improved but spasm remains. Suggested oral pain medications and muscle relaxant to RN for multimodality care, calls placed to primary provider by RN. Epidural anatomy and mechanism of action explained. Expectations discussed with thoracic epidural. Extensive discussion about removal/replacement (pt does not want epidural again). Patient feeling well enough to get up for bathroom following additional treatments. Anesthesia will continue to follow while thoracic epidural in place.
[2023-12-07] MEDS: HYDROmorphone 1 MG/ML CARPUJECT IVP STA (15:55)
[2023-12-07] MEDS: ROPIVACAINE 0.2% 200 MG/100 ML BAG EP PRN (19:43)
[2023-12-07] MEDS: LORazepam 0.5 MG TABLET PO PRN (19:46)
[2023-12-07] MEDS: ACETAMINOPHEN 500 MG TABLET PO SCH (20:29)
[2023-12-07] MEDS: HYDROmorphone 0.5 MG/0.5 ML SYRINGE IVP PRN (22:36)
[2023-12-07] MEDS: SODIUM CHLORIDE FLUSH 0.9% 10 ML SYRINGE IVP PRN (22:38)
[2023-12-08] MEDS: diphenhydrAMINE INJ 50 MG/ML VIAL IVP PRN (00:02)
--- NOTE | 2023-12-08 12:58 | PROVIDER PROGRESS NOTE ---
Subjective - General Admit Date: 12/06/23 - Review of Systems General: positive: Other (Chest/rib pain.) HEENT: positive: No symptoms Pulmonary: positive: Pleuritic chest pain. negative: Hemoptysis Cardiovascular: positive: No symptoms Gastrointestinal: positive: No symptoms Genitourinary: positive: No symptoms Musculoskeletal: positive: Other (Wrist pain) Skin: positive: No symptoms Psychiatric: positive: No symptoms Objective - Patient Data Reviewed Vital Signs: Yes Vital Signs: Vital Signs x48h Temp Pulse Resp BP Pulse Ox O2 Flow Rate 12/08/23 12:49 36.9 C 82 20 123/85 H 94 2 12/08/23 08:05 2 12/08/23 07:53 36.6 C 73 22 121/77 96 2 Weight: Weight 12/06/23 12/07/23 12/08/23 23:59 23:59 23:59 Weight (kg) 100 kg Intake & Output: Intake and Output Totals x24h 12/06/23 12/07/23 12/08/23 23:59 23:59 23:59 Intake Total 2001.767 2839.717 1000 Balance 2001.767 2839.717 1000 - Lab Results Lab Results: 12/07/23 08:56 12/07/23 08:56 - Current Medications Current Medications: Current Medications Generic Name Dose Route Start Last Admin Trade Name Freq PRN Reason Stop Dose Admin Acetaminophen 500 mg 12/07/23 21:00 12/08/23 09:19 Acetaminophen 500 Mg Tablet PO 12/13/23 23:59 500 mg Q4HR MICKY Administration Diphenhydramine HCl 12.5 - 25 mg 12/07/23 11:51 12/08/23 00:02 Diphenhydramine Inj 50 Mg/Ml Vial IVP 25 mg Q6HR PRN Administration ITCHING Enoxaparin Sodium 40 mg 12/07/23 09:00 12/08/23 09:19 Enoxaparin 40 Mg/0.4 Ml Syringe SUBQ 40 mg DAILY MICKY Administration Hydromorphone HCl 0.5 mg 12/07/23 22:08 12/08/23 05:51 Hydromorphone 0.5 Mg/0.5 Ml Syringe IVP 0.5 mg Q1H PRN Administration Severe Pain (Level 7-10) Sodium Chloride 1,000 mls @ 83 mls/hr 12/06/23 19:00 12/08/23 08:34 Normal Saline 0.9% IV 83 mls/hr .Q12H3M MICKY Administration Ropivacaine 200 mg in 100 mls @ 0 mls/hr 12/07/23 11:51 12/08/23 07:47 Naropin 0.2% EP 6 mls/hr PRN PRN Administration PAIN Protocol Per Protocol Lorazepam 0.5 mg 12/07/23 18:43 12/08/23 02:04 Lorazepam 0.5 Mg Tablet PO 12/13/23 12:59 0.5 mg Q6H PRN Administration Anxiety Ondansetron HCl 4 mg 12/06/23 18:32 12/08/23 00:02 Ondansetron 4 Mg/2 Ml Vial IVP 4 mg Q6HR PRN Administration Nausea / Vomiting Polyethylene Glycol 17 gm 12/07/23 11:00 12/08/23 09:20 Polyethylene Glycol 3350 17 Gm Packet PO 17 gm DAILY MICKY Administration Sodium Chloride 10 ml 12/06/23 18:32 12/07/23 22:38 Sodium Chloride Flush 0.9% 10 Ml Syringe IVP 10 ml PRN PRN Administration NEEDED PER PROVIDER ORDERS Sodium Chloride 10 ml 12/07/23 01:00 12/08/23 09:20 Sodium Chloride Flush 0.9% 10 Ml Syringe IVP Not Given 0100,0900,1700 PENDING SALE TO [facility] - Physical Exam General Appearance: positive: No acute distress Eyes Bilateral: positive: No lid inflammation, Conjunctivae nml, No scleral icterus ENT: positive: No signs of dehydration Neck: positive: Trachea midline Respiratory: positive: Breath sounds nml, Other (Chest is tender especially with motion.) Cardiovascular: positive: Regular rate & rhythm, No murmur, No gallop Abdomen: positive: Non-tender, Nml bowel sounds Extremities: positive: Other (RIGHT wrist in new splint.) Neurologic/Psychiatric: positive: Oriented x3, Motor nml, Sensation nml, Mood/affect nml ABX Reporting Has patient been on IV antibiotics over the past 48 hours?: No Impression/Plan - Problem List Problem List: Hospital day 3 The epidural does not appear to be working so will hold Lovenox with thought of removing non-functional one and replacing it with functional one. Agree with giving Gabapentin to help with pain. Will order lidocaine patches. Patient sco ring 4-7 on rib fracture assessment. Walked in hallway x2. No orthopedics tourist information assistant today to call with the consult. Incentive spirometry x1 patient refused to cough or repeat IS. I have made the patient aware of the risk of pneumonia. The goal should be transition to oral multimodality therapy to help with the pain - obtain a orhtopedic consultation when we can - and discharge home with help as needed.
--- NOTE | 2023-12-08 14:23 | CONSULTATION NOTE ---
Consultation Report: Acute pain management for rib fractures. Patient had a thoracic epidural placed yesterday. She has had very minimal pain relief. Attempted to give an epidural bolus but catheter is occluded. She had a 9am dose of lovenox so the earliest the epidural can be removed/replaced is 9pm this evening. Anesthesia will remove epidural tomorrow morning and replace. Surgery to hold lovenox until it is appropriate to resume (12 hours after placement). Added a one time dose of gabapentin and dilaudid 1mg q2hrs for pain. She may need NARCOTICS DETECTIVE until we can replace the epidural. Discussed management with Dr. Morrison.
[2023-12-08] MEDS: HYDROmorphone 1 MG/ML CARPUJECT IVP PRN (14:28)
[2023-12-08] MEDS: GABAPENTIN 300 MG CAPSULE PO ONE (14:40)
[2023-12-08] MEDS: CHOLECALCIFEROL 25 MCG TABLET PO SCH (16:05)
[2023-12-08] MEDS: CALCIUM CARBONATE CHEW 500 MG TABLET PO SCH (20:42)
[2023-12-08] MEDS: DOCUSATE SODIUM 250 MG CAPSULE PO SCH (20:44)
[2023-12-08] MEDS: SENNA 8.6 MG TABLET PO SCH (20:44)
[2023-12-09] MEDS: oxyCODONE 5 MG TABLET PO PRN (07:09)
[2023-12-09] MEDS ORDERED: LIDOCAINE 2%-EPI 1:100000 20 ML MDV ONE (07:25)
[2023-12-09] MEDS ORDERED: ROPIVACAINE 0.2% 200 MG/100 ML BAG EP ONE (07:35)
--- NOTE | 2023-12-09 13:27 | PROVIDER PROGRESS NOTE ---
Subjective - Subjective Pt reports feeling: Improved (appears well and comfortable. new epidural placed today) Objective - Vital Signs/Intake & Output Vital Signs: Vital Signs x48h Temp Pulse Resp BP Pulse Ox O2 Flow Rate 12/09/23 08:57 2 12/09/23 08:25 36.7 C 73 20 92/56 L 91 L 2 12/09/23 05:28 36.6 C 62 20 104/68 94 2 Intake & Output: Intake & Output 12/06/23 12/07/23 12/08/23 12/09/23 23:59 23:59 23:59 23:59 Intake Total 2839.717 2200 1477 Balance 2839.717 2200 1477 - Objective General Appearance: positive: No acute distress, Alert Eyes Bilateral: positive: PERRL, EOMI Respiratory: positive: No respiratory distress Extremities: positive: Other (right wrist splint on) Neurologic/Psychiatric: positive: Oriented x3 - Lab Results Fish Bones: 12/07/23 08:56 12/07/23 08:56 Assessment/Plan - Problem List (1) Rib fractures Impression: comfortable with new epidural. spoke with orthopedics, minor fx. surgery not needed. he recommended follow up in ortho office. home when comfortable on pain pills alone
[2023-12-09] MEDS ORDERED: ONDANSETRON 4 MG/2 ML VIAL IVP PRN (13:56)
[2023-12-09] MEDS ORDERED: NALBUPHINE 10 MG/ML AMP IVP PRN (13:56)
[2023-12-09] MEDS ORDERED: diphenhydrAMINE INJ 50 MG/ML VIAL IVP PRN (13:56)
--- NOTE | 2023-12-09 16:25 | XRAY Report ---
PROCEDURE: Wrist 1-2V RT INDICATIONS: Possible fracture TECHNIQUE: 3 views of the wrist were acquired. COMPARISON: 12/06/2023. FINDINGS: Bones: Overlying splint material obscures osseous details. There is suggestion of a mildly displaced intra-articular fracture of the distal right radius. There is cortical irregularity involving the ra dial side of the distal radius. Other visualized osseous structures appear intact.. No suspicious claudine ny lesions. Soft tissues: No suspicious soft tissue calcifications or masses. IMPRESSION: Likely mildly displaced intra-articular fracture of the distal right radius. Osseous details obscured by overlying splint material. Consider dedicated 4 view series of the wrist out of splint material t o confirm. Reviewed by: Freeman Ashley MD on 12/09/2023 4:24 PM PDT Approved by: Freeman Ashley MD on 12/09/2023 4:24 PM PDT Station ID: [id number]
[2023-12-09] MEDS: ROPIVACAINE 0.2% 200 MG/100 ML BAG EP PRN (18:56)
--- NOTE | 2023-12-09 20:41 | PROVIDER PROGRESS NOTE ---
Objective - Vital Signs/Intake & Output Vital Signs: Vital Signs x48h Temp Pulse Resp BP BP Pulse Ox O2 Flow Rate 12/09/23 17:56 36.6 C 62 18 112/58 L 96 2 12/09/23 15:58 36.6 C 60 20 110/62 98 2 12/09/23 13:53 37.0 C 75 18 118/61 95 2 Intake & Output: Intake & Output 12/06/23 12/07/23 12/08/23 12/09/23 23:59 23:59 23:59 23:59 Intake Total 76 2839.717 2200 171 Balance 2839.717 2200 1717 - Lab Results Fish Bones: 12/07/23 08:56 12/07/23 08:56 Assessment/Plan - Problem List (1) Rib fractures Impression: epidural is in place to allow her to breath adequately and with reasonable comfort. she certainly cannot go home with an epidural, especially a thoracic epidural. plan home when her pain is tolerable on pills and epidural is out.
[2023-12-10] MEDS ORDERED: ROPIVACAINE 0.2% PF 10 ML VIAL ONE (08:42)
[2023-12-10] MEDS ORDERED: SODIUM CHLORIDE 0.9% 10 ML VIAL IVP ONE (08:42)
[2023-12-10] MEDS ORDERED: fentaNYL 100 MCG/2 ML VIAL ONE (08:42)
--- NOTE | 2023-12-10 08:59 | ANESTHESIA PROCEDURE NOTE ---
Anesthesia Epidural Template - Patient Report Patient Reports: positive: Inadequate control - Exam Epidural Medication Information: Epidural Medications Medication Ropivocaine Continuous Infusion Rate (mL/ 5 hr) Demand Dose Setting 4 Bolus Amount 0 Infused Amount 0
--- NOTE | 2023-12-10 09:02 | CONSULTATION NOTE ---
Consultation Report: Acute pain rounds: Patient up in chair, Epidural site is clear. She is rating her pain 9/10 and state epidural "wore off at 2am". Epidural dosed with 4ml 0.2% ropivacaine, 100mcg fentanyl and 3ml of PF NS. Epidural rate increased to 7ml/hr with 5ml PCEA every 15mins. Reported her pain was improving and she was visibly more comfortable. Ok to restart lovenox.
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
[2023-12-10] MEDS: ROPIVACAINE 0.2% 200 MG/100 ML BAG EP PRN (10:37)
--- NOTE | 2023-12-10 15:37 | PROVIDER PROGRESS NOTE ---
Subjective - Prog Note Date Prog Note Date: 12/10/23 - Subjective Subjective: deeply asleep. appears very comfortable. taking deep breaths. awakens to voice Objective - Vital Signs/Intake & Output Vital Signs: Vital Signs x48h Temp Pulse Resp BP BP Pulse Ox 12/10/23 13:48 36.5 C 84 20 101/61 92 12/10/23 09:03 36.9 C 90 22 94/58 L 92 12/10/23 07:48 36.7 C 72 24 117/80 93 Intake & Output: Intake & Output 12/07/23 12/08/23 12/09/23 12/10/23 23:59 23:59 23:59 23:59 Intake Total 2839.717 2200 1717 2627 Balance 2839.717 2200 1717 2627 - Objective General Appearance: positive: Other (deeply asleep and comfortable. awakens to voice) Respiratory: positive: No respiratory distress Neurologic/Psychiatric: positive: Oriented x3 - Lab Results Fish Bones: 12/07/23 08:56 12/07/23 08:56 Assessment/Plan - Problem List (1) Rib fractures Impression: she states she continues to need the epidural to be able to move and take deep breaths. she cannot go home with an epidural plan home when pain tolerable on pills alone
[2023-12-10] MEDS: LIDOCAINE PATCH 5% TOP PRN (16:17)
[2023-12-11] MEDS: oxyCODONE 5 MG TABLET PO PRN (08:48)
[2023-12-11] MEDS: ROPIVACAINE 0.2% 200 MG/100 ML BAG EP PRN (09:26)
--- NOTE | 2023-12-11 09:37 | CONSULTATION NOTE ---
Consultation Report: Acute pain rounds: Nursing had turned off epidural during the night due to patient c/o anxiety related to sensory block. Patient states she did not sleep during the night due to pain and noise. She is tired today. States her pain is severe. Offered to removed epidural today but she would like to keep in in one more day. Did not assess site as patient was in pain and did not want to move. Epidural infusion restarted at 7ml/hr with 3ml q15 mins PCEA. Will plan on removal tomorrow morning. Will hold tomorrow am dose of lovenox.
[2023-12-11] MEDS: ENOXAPARIN 40 MG/0.4 ML SYRINGE SUBQ SCH (10:26)
--- NOTE | 2023-12-11 16:06 | PROVIDER PROGRESS NOTE ---
Subjective - Subjective Pt reports feeling: No change (very sedated. awakens to voice.) Objective - Vital Signs/Intake & Output Vital Signs: Vital Signs x48h Temp Pulse Resp BP Pulse Ox 12/11/23 15:30 36.7 C 75 20 155/89 H 94 12/11/23 13:58 36.6 C 70 20 156/83 H 94 12/11/23 10:25 72 18 92 12/11/23 08:35 36.6 C 69 20 142/81 H 91 L Intake & Output: Intake & Output 12/08/23 12/09/23 12/10/23 12/11/23 23:59 23:59 23:59 23:59 Intake Total 2200 1717 3627 237 Balance 2200 1717 3627 237 - Objective General Appearance: positive: Other (was asleep. awakens to voice. appears very sedated. taking deep breaths) Respiratory: positive: No respiratory distress Neurologic/Psychiatric: positive: Other (very sedated) - Lab Results Fish Bones: 12/07/23 08:56 12/07/23 08:56 Assessment/Plan - Problem List (1) Rib fractures Impression: by chart review refusing to move this am due to pain. epidural restarted this am. very comfortable. appears very sedated. will decrease narcotics. plan and hope is she will allow or accept the epidural being discontinued tomorrow. home when pain tolerable on pills alone. she cannot be discharged with epidural and pump.
[2023-12-12] MEDS: oxyCODONE 5 MG TABLET PO PRN ×2 (05:59→08:53)
--- NOTE | 2023-12-12 07:29 | PROVIDER PROGRESS NOTE ---
Subjective - General Admit Date: 12/06/23 - Review of Systems General: positive: Other (Chest/rib pain.) HEENT: positive: No symptoms Pulmonary: positive: Shortness of breath (2/2 pain), Pleuritic chest pain. negative: Hemoptysis Cardiovascular: positive: No symptoms Gastrointestinal: positive: No symptoms Genitourinary: positive: No symptoms Musculoskeletal: positive: Other (R Wrist pain) Skin: positive: No symptoms Psychiatric: positive: No symptoms - Other Other Information/Narrative: Patient finding it difficult to control pain without feeling very sedated for a long time. She was unable to walk yesterday because she was so sleepy. Her son at bedside is concerned she has more pain at night and it is often not well controlled. Patient has not been using IS. Was walking in halls on Sat, but no out of bed yesterday per her report. She doesn't feel like the epidural is working very well. She is willing to try to use IS, cough, and be more active today if we can get her pain control more consistent. Objective - Patient Data Reviewed Vital Signs: Yes Vital Signs: Vital Signs x48h Temp Pulse Resp BP Pulse Ox O2 Flow Rate 12/12/23 04:55 36.8 C 76 16 150/86 H 95 2 12/12/23 02:52 89 16 147/74 H 93 2 Intake & Output: Intake and Output Totals x24h 12/10/23 12/11/23 12/12/23 23:59 23:59 23:59 Intake Total 3627 737 Balance 3627 737 - Lab Results Lab Results: 12/07/23 08:56 12/07/23 08:56 Other Lab Results: labs pending this AM. - Imaging Results Imaging Results Comments: CXR pending this AM. - Current Medications Current Medications: Current Medications Generic Name Dose Route Start Last Admin Trade Name Freq PRN Reason Stop Dose Admin Acetaminophen 500 mg 12/07/23 21:00 12/12/23 05:58 Acetaminophen 500 Mg Tablet PO 12/13/23 23:59 500 mg Q4HR MICKY Administration Calcium Carbonate/Glycine 500 mg 12/08/23 21:00 12/11/23 20:23 Calcium Carbonate Chew 500 Mg Tablet PO 500 mg BID MICKY Administration Cholecalciferol 50 mcg 12/08/23 17:00 12/11/23 08:44 Cholecalciferol 25 Mcg Tablet PO 50 mcg DAILY MICKY Administration Docusate Sodium 250 - 500 mg 12/08/23 21:00 12/11/23 08:43 Docusate Sodium 250 Mg Capsule PO 250 mg DAILY MICKY Administration Hydromorphone HCl 0.5 mg 12/07/23 22:08 12/11/23 23:05 Hydromorphone 0.5 Mg/0.5 Ml Syringe IVP 0.5 mg Q1H PRN Administration Severe Pain (Level 7-10) Ropivacaine 200 mg in 100 mls @ 0 mls/hr 12/11/23 09:42 12/11/23 18:28 Naropin 0.2% EP 7 mls/hr PRN PRN Administration PAIN Protocol Per Protocol Lidocaine 1 patch 12/10/23 15:33 12/12/23 00:32 Lidocaine Patch 5% TOP 1 patch DAILY PRN Administration Moderate Pain (Level 4-6) Lorazepam 0.5 mg 12/07/23 18:43 12/11/23 08:47 Lorazepam 0.5 Mg Tablet PO 12/13/23 12:59 0.5 mg Q6H PRN Administration Anxiety Oxycodone HCl 5 mg 12/11/23 16:10 12/12/23 05:59 Oxycodone 5 Mg Tablet PO 5 mg Q4HR PRN Administration Moderate Pain (Level 4-6) Polyethylene Glycol 17 gm 12/07/23 11:00 12/11/23 08:45 Polyethylene Glycol 3350 17 Gm Packet PO Not Given DAILY MICKY Senna 8.6 - 17.2 mg 12/08/23 21:00 12/11/23 08:45 Senna 8.6 Mg Tablet PO Not Given DAILY [facility] Sodium Chloride 10 ml 12/06/23 18:32 12/11/23 07:08 Sodium Chloride Flush 0.9% 10 Ml Syringe IVP 10 ml PRN PRN Administration NEEDED PER PROVIDER ORDERS Sodium Chloride 10 ml 12/07/23 01:00 12/12/23 00:31 Sodium Chloride Flush 0.9% 10 Ml Syringe IVP 10 ml 0100,0900,1700 MICKY Administration - Physical Exam Wound/Incisions: positive: Other (L arm with dressing in place.) General Appearance: positive: No acute distress, Other (alert and oriented.) Eyes Bilateral: positive: Normal inspection, PERRL, EOMI ENT: positive: No signs of dehydration Neck: positive: Trachea midline Respiratory: positive: Other (On 2L O2 at night, not during day.). negative: Chest non-tender (ttp, especially over left lateral, posterior chest wall.), Breath sounds nml (Coarse breath sounds bilaterally, less air movement on L) Cardiovascular: positive: Regular rate & rhythm Abdomen: positive: Non-tender, Tenderness. negative: Guarding, Rebound Back: positive: Nml inspection Extremities: positive: Other (R arm in splint. MSI in hand.) Neurologic/Psychiatric: positive: Oriented x3 Impression/Plan - Problem List Problem List: 53 y/o F s/p [facility] [place] 12[place]03, admitted 12/05 for pain control. 1. left rib fx 5-8 laterally, 7-8 posteriorly - pain control difficult to calibrate with epidural, anesthesia to remove this AM - patient has been oscillating between extreme pain with pain crisis and oversedation - Multimodal pain control plan: plan to add lidoderm patch to chest wall (she has one on her shoulder that is helping), add scheduled ibuprofen, continue scheduled tylenol. I changed oxycodone to 5mg q4h scheduled with additional 5mg available PRN. IV dilaudid available for breakthough pain only after all other PO meds given. - Hopeful that changes in pain meds will provide more consistent relief. I did discuss the goal in pain control is to allow the patient to rest, eat, move without being limited by pain but not to eliminate pain. She is agreeable. - Patient cannot discharge until pain controlled with PO meds, off oxygen. - Increase IS and activity today 2. RLL opacity on CXR 12/06, atelectasis vs evolving pneumonia - AM labs and CXR pending - suspect mostly atelectasis given history of poor respiratory toilet for last couple of days - patient has been refusing to work with RT, PT, OT. I encouraged her to work with therapy today and she states she will. - requiring O2 at night (? due to increased sedation or poor respiratory effort due to pain). Hopeful with increased IS and pain control she will be able to wean from oxygen. I do not anticipate she should require oxygen snf. 3. left arm abrasion - clean, dressing in place 4. right wrist fx - splint in place. Seen by Dr. Bain. Planning to fo/u with [facility] as outpatient after discharge Patient admitted to floor. Plan to transition to PO meds and increase IS, activity today. Hopeful for discharge in next couple of days.
[2023-12-12] MEDS: oxyCODONE 5 MG TABLET PO SCH (08:53)
[2023-12-12] MEDS: IBUPROFEN 600 MG TABLET PO SCH (09:12)
--- NOTE | 2023-12-12 09:14 | CONSULTATION NOTE ---
Consultation Report: The thoracic epidural catheter was removed with the tip intact, without difficulty. Patient may have anticoagulant for VTE prophylaxis at 12:00 today, if desired.
[2023-12-12] MEDS: LIDOCAINE PATCH 5% TOP PRN (09:36)
[2023-12-12 09:43] LABS: HCT - HEMATOCRIT 40.5 % (37.0-47.0); HGB - HEMOGLOBIN 13.3 g/dL (12.0-16.0); MEAN CORPUSCULAR HEMOGLOBIN 30.9 pg (27.0-31.0); MEAN CORPUSCULAR HGB CONC 32.8 g/dL (32.0-36.0); MEAN CORPUSCULAR VOLUME 94.2 fL (81.0-99.0); MEAN PLATELET VOLUME 12.5 fL (7.9-10.8); RED BLOOD COUNT 4.3 10^6/uL (4.20-5.40); WHITE BLOOD COUNT 8.4 x10^3/uL (4.8-10.8)
[2023-12-12 09:58] LABS: CALCIUM 9.4 mg/dL (8.5-10.3); CREATININE 0.6 mg/dL (0.6-1.3); POTASSIUM 3.9 mmol/L (3.5-4.5)
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
[2023-12-12] MEDS: ENOXAPARIN 40 MG/0.4 ML SYRINGE SUBQ SCH (14:22)
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
[2023-12-12] MEDS: HYDROmorphone 0.5 MG/0.5 ML SYRINGE IVP PRN (23:04)
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
[2023-12-13] MEDS ORDERED: ENOXAPARIN 40 MG/0.4 ML SYRINGE SUBQ SCH (09:00)
[2023-12-14 05:05] VITALS: O2SAT 96
[2023-12-14 08:12] VITALS: BP 139/80
--- NOTE | 2023-12-14 08:38 | Discharge Plan ---
Discharge Plan Problem Reviewed?: Yes Disposition: Home, Self Care Condition: Stable Prescriptions: polyethylene glycoL 3350(BULK) [Miralax] 17 gm PO DAILY #238 gm oxyCODONE [Roxicodone] 5 - 10 mg PO Q4H PRN #31 tablet PRN Reason: Pain Diet: Regular Activity Restrictions: NWB R UE Shower Restrictions: Yes (keep splint dry in shower) Driving Restrictions: Yes (do not drive while taking narcotic pain meds) Weight Bearing: Full Weight Instruction Topics: ED Fx Rib, Distal Radius Fx, Incentive Spirometer Dc Plan of Treatment: Continue to increase activity and work on pain control. Care Goals: Improve pain control. Assessment: Pain controlled with PO meds this AM. Tolerating regular diet. No n/v. Patient states she feels safe to go home today and has plans for help and assistance in place. Additional Instructions or Follow Up instructions: f/u with [facility] within one week f/u with PCP within one week No Smoking: If you smoke, Please STOP! Call for help.
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
--- NOTE | 2023-12-14 10:08 | Discharge Plan ---
Discharge Plan Problem Reviewed?: Yes Disposition: Home, Self Care Condition: Stable Prescriptions: Lidocaine [Dermacinrx Lidocan] 1 each TP DAILY #30 patch polyethylene glycoL 3350(BULK) [Miralax] 17 gm PO DAILY #238 gm oxyCODONE [Roxicodone] 5 - 10 mg PO Q4H PRN #31 tablet PRN Reason: Pain Activity Restrictions: NWB R UE Shower Restrictions: Yes (keep splint dry in shower) Driving Restrictions: Yes (do not drive while taking narcotic pain meds) Weight Bearing: Full Weight Instruction Topics: Incentive Spirometer Dc, Distal Radius Fx, ED Fx Rib Plan of Treatment: Continue to increase activity and work on pain control. Care Goals: Improve pain control. Assessment: Pain controlled with PO meds this AM. Tolerating regular diet. No n/v. Patient states she feels safe to go home today and has plans for help and assistance in place. Additional Instructions or Follow Up instructions: f/u with [facility] within one week f/u with PCP within one week No Smoking: If you smoke, Please STOP! Call for help.
--- NOTE | 2023-12-14 13:11 | PROVIDER PROGRESS NOTE ---
Progress Note [facility] pharmacy unable to fill oxycodone. Initial Rx cancelled and [facility] Rx [facility] [place] per patient request.
== END 2023-12-14 10:19 | disposition home or self-care (01) | DRG 184 ==
LOC: EDBD → ED 04:35 → MS2 18:33
PROVIDERS: ADMIT Surgery; ATTEND Surgery
PROC: 00HU33Z Insertion of Infusion Device into Spinal Canal, Percutaneous Approach (ICD-10-PCS; principal; 2023-12-07)
PROC: 00PUX3Z Removal of Infusion Device from Spinal Canal, External Approach (ICD-10-PCS; 2023-12-09)
PROC: 00HU33Z Insertion of Infusion Device into Spinal Canal, Percutaneous Approach (ICD-10-PCS; 2023-12-09)
PROC: 00PUX3Z Removal of Infusion Device from Spinal Canal, External Approach (ICD-10-PCS; 2023-12-12)
DX: S22.42XA Multiple fractures of ribs, left side, initial encounter for closed fracture (principal); J98.11 Atelectasis; S52.561A Barton's fracture of right radius, initial encounter for closed fracture; T85.690A Other mechanical complication of cranial or spinal infusion catheter, initial encounter; V28.49XA Other motorcycle driver injured in noncollision transport accident in traffic accident, initial encounter; G89.11 Acute pain due to trauma; M25.512 Pain in left shoulder; S40.812A Abrasion of left upper arm, initial encounter; R25.2 Cramp and spasm; F41.8 Other specified anxiety disorders; R40.0 Somnolence; T39.95XA Adverse effect of unspecified nonopioid analgesic, antipyretic and antirheumatic, initial encounter; Z79.899 Other long term (current) drug therapy; Z87.891 Personal history of nicotine dependence
CPT/HCPCS: 36415; 71045; 71046; 71260; 73030; 73100; 74177; 80048; 80053; 83690; 85025; 85027; 96361; 96374; 96375; 96376; 97161; 97166; 97530; 99285; A9270; J1170; J1200; J1650; J7120; Q9967

== ENCOUNTER 2023-12-15 09:20 | Outpatient (CLI) | payer OTHER ==
--- NOTE | 2023-12-15 16:21 | XRAY Report ---
PROCEDURE: Wrist 3+V RT INDICATIONS: RIGHT WRIST PAIN TECHNIQUE: 3 views of the wrist were acquired. COMPARISON: 12/09/2023, 12/06/2023. FINDINGS: Bones: Again noted is comminuted intra-articular fracture of distal radius. Alignment of wrist is an atomic.. Wrist alignment is unchanged from prior study. No new fracture or dislocation. No suspicious bony lesions. Soft tissues: No suspicious soft tissue calcifications or masses. IMPRESSION: Stable appearance of comminuted intra-articular fracture of distal radius. No new fracture or disloca tion. Reviewed by: Loyd Chery MD on 12/15/2023 4:20 PM PDT Approved by: Loyd Chery MD on 12/15/2023 4:20 PM PDT Station ID: [id number]
== END 2023-12-15 09:21 | disposition home or self-care (01) ==
LOC: DI 09:20
PROVIDERS: ATTEND Orthopaedic Surgery
DX: S52.571A Other intraarticular fracture of lower end of right radius, initial encounter for closed fracture (principal)

== ENCOUNTER 2023-12-20 13:51 | Emergency (ER) | payer OTHER, MEDICAID ==
[2023-12-20 14:12] VITALS: BP 118/74; O2SAT 97
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
[2023-12-20] MEDS: CYCLOBENZAPRINE 10 MG TABLET PO STA (15:05)
== END 2023-12-20 15:16 | disposition home or self-care (01) ==
LOC: ED 13:51
DX: M62.838 Other muscle spasm (principal); R07.89 Other chest pain; Z76.0 Encounter for issue of repeat prescription
CPT/HCPCS: 99283; A9270

== ENCOUNTER 2023-12-21 14:16 | Outpatient (CLI) | payer OTHER ==
--- NOTE | 2023-12-21 17:35 | XRAY Report ---
PROCEDURE: Wrist 3+V RT INDICATIONS: RIGHT WRIST PAIN TECHNIQUE: 3 views of the wrist were acquired. COMPARISON: 12/15/2023 FINDINGS: Bones: Mildly displaced distal radius fracture again seen, without significant interval change. Ther e is early evidence of healing. No dislocation. Soft tissues: Cast material obscured the limb. IMPRESSION: Distal radius fracture again seen. Cast material obscures the limb. Reviewed by: Jamal Zimmer MD on 12/21/2023 5:33 PM PDT Approved by: Jamal Zimmer MD on 12/21/2023 5:33 PM PDT Station ID: [id number]
== END 2023-12-21 14:17 | disposition home or self-care (01) ==
LOC: DI 14:16
PROVIDERS: ATTEND Orthopaedic Surgery
DX: S52.501D Unspecified fracture of the lower end of right radius, subsequent encounter for closed fracture with routine healing (principal)

== ENCOUNTER 2024-01-10 09:52 | Outpatient (CLI) | payer MEDICAID ==
--- NOTE | 2024-01-10 10:54 | XRAY Report ---
PROCEDURE: Wrist 3+V RT INDICATIONS: HASTINGS'S FRACTURE OF RIGHT RADIUS TECHNIQUE: 3 views of the wrist were acquired. COMPARISON: X-ray 12/21/2023, 12/15/2023. FINDINGS: Bones: Osteopenia. Distal radial fracture seen with callus formation. Alignment appears unchanged. Soft tissues: No definite radiographic abnormality of the soft tissues IMPRESSION: Evolution of distal radial fracture Reviewed by: Ivan Gomez MD on 01/10/2024 10:52 AM PDT Approved by: Ivan Gomez MD on 01/10/2024 10:52 AM PDT Station ID: [id number]
== END 2024-01-10 09:53 | disposition home or self-care (01) ==
LOC: DI 09:52
PROVIDERS: ATTEND Orthopaedic Surgery
DX: S52.561D Barton's fracture of right radius, subsequent encounter for closed fracture with routine healing (principal)

== ENCOUNTER 2024-03-13 08:00 | Outpatient (CLI) | payer OTHER, MEDICAID ==
--- NOTE | 2024-03-13 17:40 | XRAY Report ---
PROCEDURE: Wrist 3+V RT INDICATIONS: HASTINGS'S FX OF RIGHT RADIUS TECHNIQUE: 3 views of the wrist were acquired. COMPARISON: 01/10/2024, 12/21/2023, 12/15/2023. FINDINGS: Bones: There is interval further healing at distal radial intra-articular fracture site with increas ed sclerosis and further bony union at fracture site. No new fracture or dislocation. Wrist joint ost eoarthritic changes are seen. No suspicious bony lesions. Soft tissues: No suspicious soft tissue calcifications or masses. IMPRESSION: Interval further healing at distal radial intra-articular fracture site with stable wrist alignment. No new fracture or dislocation. Reviewed by: Loyd Velez MD on 03/13/2024 5:38 PM PDT Approved by: Loyd Velez MD on 03/13/2024 5:38 PM PDT Station ID: [id number]
== END 2024-03-13 23:59 | disposition home or self-care (01) ==
LOC: DI.WOS 08:00
PROVIDERS: ATTEND Orthopaedic Surgery
DX: S52.561D Barton's fracture of right radius, subsequent encounter for closed fracture with routine healing (principal)